=== PATIENT | female | born 1960 | race Caucasian/White ===

== ENCOUNTER 2016-03-14 07:58 | Inpatient (IN) | payer MEDICAID ==
[~2016-03-14] VITALS: Ht 157.5 cm; Wt 49.9 kg
[2016-03-14 08:06] VITALS: BP_SYST 11; BP_SYST 111; BP_DIAS 74; PULSE 64; RESP 16; TEMP 98.3; O2SAT 100
[2016-03-14] MEDS ORDERED: POTA20TA83 PO (08:53)
[2016-03-14] MEDS ORDERED: LACT10SO66 PO (08:53)
[2016-03-14] MEDS ORDERED: HYDR2TAB34 PO (08:53)
[2016-03-14] MEDS ORDERED: FURO-149 PO (08:53)
[2016-03-14] MEDS ORDERED: SPIR50TA26 PO (08:53)
[2016-03-14] MEDS ORDERED: ONDA4TAB5 PO (08:53)
[2016-03-14] MEDS ORDERED: CEL20 PO (08:53)
[2016-03-14] MEDS ORDERED: IPRA3AMP9 INH (08:53)
[2016-03-14] MEDS ORDERED: MORP15TA60 PO (08:53)
[2016-03-14] MEDS ORDERED: DIPH25CA83 PO (08:53)
[2016-03-14 10:00] LABS: BASOPHILS % (AUTO) 0.4 % (0.0-2.0); EOSINOPHILS # (AUTO) 0.2 K/uL (0.0-0.4); EOSINOPHILS % (AUTO) 4.2 % (0.0-4.0); HEMATOCRIT 25.3 % (36-48); HEMOGLOBIN 7.8 g/dL (12.0-16.0); LYMPHOCYTES # (AUTO) 1.5 K/uL (1.0-5.5); MEAN CORPUSCULAR HEMOGLOBIN 21 pg (27-31); MEAN CORPUSCULAR HGB CONC 31 % (32-36); MEAN CORPUSCULAR VOLUME 69 fL (79.0-98.0); MONOCYTES # (AUTO) 0.5 K/uL (0.0-1.0); MONOCYTES % (AUTO) 9.6 % (1.7-9.3); NEUTROPHILS # (AUTO) 3.5 K/uL (1.8-7.7); NEUTROPHILS % (AUTO) 58.8 % (40.0-70.0); PLATELET COUNT (AUTO) 135 K/uL (130-430); RED BLOOD CELL COUNT(AUTO) 3.67 MIL/uL (4.2-6.2); RED CELL DISTRIBUTION WIDTH 21.4 % (9.0-15.0); WHITE BLOOD COUNT (AUTO) 5.7 K/uL (4.8-10.8)
[2016-03-14 10:10] LABS: BILIRUBIN,URINE NEGATIVE (NEGATIVE); BLOOD, URINE NEGATIVE (NEGATIVE); CLARITY/URINE CLEAR (CLEAR); COLOR,URINE YELLOW (YELLOW); GLUCOSE,URINE NEGATIVE (NEGATIVE); KETONES,URINE NEGATIVE (NEGATIVE); LEUKOCYTE ESTERASE ,URINE NEGATIVE (NEGATIVE); NITRITE, URINE NEGATIVE (NEGATIVE); PROTEIN URINE NEGATIVE (NEGATIVE); UROBILINOGEN,URINE 0.2 (0.2-1.0)
[2016-03-14 10:10] LABS: CALCIUM 9.4 mg/dL (8.4-11.0); CREATININE 0.6 mg/dL (0.55-1.30); POTASSIUM 3.8 mmol/L (3.5-5.1)
[2016-03-14 10:11] LABS: INR 1.1 (0.8-1.2); PROTHROMBIN TIME 11.6 SECS (9.5-12.5)
[2016-03-14 10:15] LABS: TOTAL BILIRUBIN 0.5 mg/dL (0.0-1.0); TOTAL PROTEIN, SERUM 7.4 g/dL (6.4-8.3)
[2016-03-14] MEDS ORDERED: HYDROmorphone 1 MG INJ. 1 MG/ML AMPUL IVP ONE (11:00)
[2016-03-14] MEDS ORDERED: ONDANSETRON HCL 4 MG/2 ML VIAL IVP ONE (11:00)
[2016-03-14] MEDS ORDERED: LORazepam 2 MG/ML VIAL (FOR ER USE) IVP ONE (12:00)
[2016-03-14] MEDS ORDERED: METOCLOPRAMIDE HCL 10 MG/2 ML VIAL IVP PRN (12:15)
[2016-03-14] MEDS ORDERED: ACETAMINOPHEN 325 MG TABLET PO PRN (12:15)
[2016-03-14] MEDS: PIPERACILLIN/TAZO 3.375/DEX-IS 50 ML IV SCH ×3 (12:17→23:58)
[2016-03-14 13:00] VITALS: BP 115/49; PULSE 63; RESP 18; TEMP 98.1; O2SAT 96
[2016-03-14 16:00] VITALS: BP 97/56; PULSE 76; RESP 17; TEMP 98.1; O2SAT 97
[2016-03-14 16:12] LABS: IRON (SERUM) 22 mcg/dL (37-145); TOTAL IRON BIND. CAPACITY 475 ug/dL (250-450)
[2016-03-14] MEDS ORDERED: DIATR MEGLU/DIATRIZ SOD 30 ML SOLUTION PO ONE (16:46)
[2016-03-14] MEDS: D5NS 1,000 ML IV SCH ×2 (17:20→23:00)
[2016-03-14] MEDS: MORPHINE 2 MG/ML INJ. SYRINGE IVP PRN (18:04)
[2016-03-14 19:00] VITALS: BP 96/50; PULSE 53; RESP 16; TEMP 99; O2SAT 98
[2016-03-14] MEDS ORDERED: IOHEXOL 100 ML IV ONE (19:37)
[2016-03-14] MEDS: MORPHINE 4 MG/ML INJ. SYRINGE IVP PRN ×2 (19:59→23:53)
[2016-03-14 20:00] VITALS: BP 96/50; PULSE 53; RESP 18; TEMP 99; O2SAT 98
[2016-03-14] MEDS: NICOTINE 7 MG/24 HR PATCH.TD24 TD SCH (21:48)
[2016-03-15] MEDS: PIPERACILLIN/TAZO 3.375/DEX-IS 50 ML IV SCH ×6 (00:01→23:29)
[2016-03-15 00:46] VITALS: BP 117/72; PULSE 58; RESP 18; TEMP 98.6; O2SAT 99
[2016-03-15] MEDS: D5NS 1,000 ML IV SCH ×2 (02:49→22:21)
[2016-03-15] MEDS: MORPHINE 4 MG/ML INJ. SYRINGE IVP PRN ×4 (04:10→23:28)
[2016-03-15 04:19] VITALS: BP 111/63; PULSE 62; RESP 17; TEMP 98.4; O2SAT 95
[2016-03-15 08:00] VITALS: BP 103/68; PULSE 64; RESP 16; TEMP 98.2; O2SAT 96
[2016-03-15] MEDS: CITALOPRAM HYDROBROMIDE 20 MG TABLET PO SCH (08:54)
[2016-03-15] MEDS: NICOTINE 7 MG/24 HR PATCH.TD24 TD SCH (08:55)
[2016-03-15 12:30] VITALS: BP 118/81; PULSE 87; RESP 16; TEMP 97.9; O2SAT 97
[2016-03-15 16:00] VITALS: BP 107/54; PULSE 79; RESP 15; TEMP 98.1; O2SAT 97
[2016-03-15 16:29] VITALS: Ht 157.5 cm; Wt 49.9 kg
[2016-03-15] MEDS: MORPHINE 2 MG/ML INJ. SYRINGE IVP PRN (18:42)
[2016-03-15 20:00] VITALS: BP 113/71; PULSE 52; RESP 18; TEMP 98.5; O2SAT 98
[2016-03-15] MEDS: ONDANSETRON HCL 4 MG/2 ML VIAL IVP PRN (23:29)
[2016-03-16 01:43] VITALS: BP 136/74; PULSE 51; RESP 19; TEMP 98; O2SAT 99
[2016-03-16 04:12] VITALS: BP 140/76; PULSE 76; RESP 18; TEMP 98.9; O2SAT 98
[2016-03-16] MEDS: MORPHINE 4 MG/ML INJ. SYRINGE IVP PRN (05:30)
[2016-03-16] MEDS: ONDANSETRON HCL 4 MG/2 ML VIAL IVP PRN (05:30)
[2016-03-16] MEDS: PIPERACILLIN/TAZO 3.375/DEX-IS 50 ML IV SCH (05:30)
[2016-03-16 06:56] LABS: BASOPHILS # (AUTO) 0.1 K/uL (0.0-0.2); BASOPHILS % (AUTO) 1.3 % (0.0-2.0); EOSINOPHILS # (AUTO) 0.2 K/uL (0.0-0.4); EOSINOPHILS % (AUTO) 3.9 % (0.0-4.0); HEMATOCRIT 25.5 % (36-48); HEMOGLOBIN 7.9 g/dL (12.0-16.0); LYMPHOCYTES # (AUTO) 1.8 K/uL (1.0-5.5); LYMPHOCYTES % (AUTO) 30.8 % (20.5-51.5); MEAN CORPUSCULAR HEMOGLOBIN 22 pg (27-31); MEAN CORPUSCULAR HGB CONC 31 % (32-36); MEAN CORPUSCULAR VOLUME 70 fL (79.0-98.0); MONOCYTES # (AUTO) 0.4 K/uL (0.0-1.0); MONOCYTES % (AUTO) 6.9 % (1.7-9.3); NEUTROPHILS # (AUTO) 3.2 K/uL (1.8-7.7); NEUTROPHILS % (AUTO) 57.1 % (40.0-70.0); PLATELET COUNT (AUTO) 98 K/uL (130-430); RED BLOOD CELL COUNT(AUTO) 3.66 MIL/uL (4.2-6.2); RED CELL DISTRIBUTION WIDTH 21.8 % (9.0-15.0); WHITE BLOOD COUNT (AUTO) 5.8 K/uL (4.8-10.8)
[2016-03-16] MEDS: NICOTINE 7 MG/24 HR PATCH.TD24 TD SCH (08:16)
[2016-03-16] MEDS: CITALOPRAM HYDROBROMIDE 20 MG TABLET PO SCH (08:17)
[2016-03-16 09:49] VITALS: BP 103/57; PULSE 52; RESP 15; TEMP 97.7; O2SAT 98
== END 2016-03-16 10:15 | disposition home or self-care (01) | DRG 249 ==
LOC: SED 07:58 → SMU 11:47
PROVIDERS: ADMIT Internal Medicine Hospice and Palliative Medicine; ATTEND Internal Medicine Hospice and Palliative Medicine
DX: K52.9 Noninfective gastroenteritis and colitis, unspecified (principal); D68.59 Other primary thrombophilia; K70.30 Alcoholic cirrhosis of liver without ascites; E44.1 Mild protein-calorie malnutrition; N13.30 Unspecified hydronephrosis; G89.29 Other chronic pain; F10.10 Alcohol abuse, uncomplicated; K43.9 Ventral hernia without obstruction or gangrene; D64.9 Anemia, unspecified; Z79.899 Other long term (current) drug therapy
CPT/HCPCS: 36415; 71010; 80053; 81003; 82105; 82140-TC; 82607; 83540-TC; 83550-TC; 83605; 83690-TC; 85025; 85610-TC; 87040-TC; 93005; 96365; 96375; 99285; J1170; J2060; J2270; J2405; J2543; J7042; Q9964; Q9967

== ENCOUNTER 2017-07-28 06:41 | Inpatient (IN) | payer SELFPAY ==
[2017-07-28] VITALS (21 sets, daily range): BP systolic 87–140
[~2017-07-28] VITALS: Ht 157.5 cm; Wt 62.6 kg
[~2017-07-28 06:41] MED LIST: CEL20 PO; DIPH25CA83 PO; FURO-149 PO; HYDR2TAB34 PO; IPRA3AMP9 INH; LACT10SO66 PO; MORP15TA60 PO; ONDA4TAB5 PO; POTA20TA83 PO; SPIR50TA26 PO
[2017-07-28] MEDS ORDERED: NACL 0.9% 1,000 ML IV ONE ×4 (06:51→11:45)
[2017-07-28] MEDS ORDERED: NALOXONE HCL 2 MG/2 ML SYR IVP ONE ×2 (07:00→07:15)
[2017-07-28] MEDS ORDERED: ESCI10TA PO (07:09)
[2017-07-28] MEDS ORDERED: DICY10CA59 PO (07:09)
[2017-07-28] MEDS ORDERED: PROP10TA10 PO (07:09)
[2017-07-28] MEDS ORDERED: ALPR1TAB2 PO ×2 (07:09)
[2017-07-28] MEDS ORDERED: DOCU-144 PO (07:09)
[2017-07-28] MEDS ORDERED: PANT20TA2 PO (07:09)
[2017-07-28] MEDS ORDERED: TYC3 PO (07:09)
[2017-07-28] MEDS ORDERED: HYDR4TAB26 PO (07:09)
[2017-07-28 07:28] LABS: HEMATOCRIT 45.6 % (36-48); HEMOGLOBIN 15.2 g/dL (12.0-16.0); MEAN CORPUSCULAR HEMOGLOBIN 34 pg (27-31); MEAN CORPUSCULAR HGB CONC 33 % (32-36); MEAN CORPUSCULAR VOLUME 101 fL (79.0-98.0); PLATELET COUNT (AUTO) 159 K/uL (130-430); RED BLOOD CELL COUNT(AUTO) 4.51 MIL/uL (4.2-6.2); RED CELL DISTRIBUTION WIDTH 14.2 % (9.0-15.0)
[2017-07-28 07:31] LABS: BILIRUBIN,URINE NEGATIVE (NEGATIVE); BLOOD, URINE 1+ (NEGATIVE); CLARITY/URINE CLEAR (CLEAR); COLOR,URINE YELLOW (YELLOW); GLUCOSE,URINE NEGATIVE (NEGATIVE); KETONES,URINE NEGATIVE (NEGATIVE); LEUKOCYTE ESTERASE ,URINE 1+ (NEGATIVE); NITRITE, URINE NEGATIVE (NEGATIVE); PH,URINE 6.5 (5.0-8.0); PROTEIN URINE NEGATIVE (NEGATIVE); UROBILINOGEN,URINE 0.2 (0.2-1.0)
[2017-07-28 07:48] LABS: ANION GAP 11 (5-15); CALCIUM 8.1 mg/dL (8.4-11.0); CHLORIDE 106 mmol/L (98-107); CREATININE 1.84 mg/dL (0.55-1.30); GLUCOSE 129 mg/dL (70-99); POTASSIUM 5.7 mmol/L (3.5-5.1); SODIUM SERUM 142 mmol/L (136-145); UREA NITROGEN, BLOOD 10 mg/dL (8-21)
[2017-07-28 07:52] LABS: INR 1.1 (0.8-1.2); PROTHROMBIN TIME 11.3 SECS (9.5-12.5)
[2017-07-28 07:54] LABS: ALANINE AMINOTRANSFERASE 25 U/L (12-78); ALBUMIN 3.4 g/dL (3.4-4.8); ASPARTATE AMINOTRANSFERASE 37 U/L (10-37); TOTAL BILIRUBIN 0.2 mg/dL (0.0-1.0)
[2017-07-28 07:56] LABS: ALCOHOL, BLOOD < 3 mg/dL (<10); GFR AFRICAN AMERICAN 36 mL/min (>90)
[2017-07-28 07:57] LABS: ACETAMINOPHEN < 1 ug/mL (1-30)
[2017-07-28 08:01] LABS: BACTERIA,URINE FEW /HPF (None Seen)
[2017-07-28 08:02] LABS: MUCUS,URINE None Seen /LPF (None Seen)
[2017-07-28 08:06] LABS: WHITE BLOOD COUNT (AUTO) 17.1 K/uL (4.8-10.8)
[2017-07-28 08:13] LABS: BARBITURATE, URINE NEGATIVE (NEG <=200); METHAMPHETAMINES SCREEN,URINE NEGATIVE (NEG <=500); URINE AMPHETAMINE NEGATIVE (NEG <=500); URINE METHADONE NEGATIVE (NEG <=200)
[2017-07-28 08:14] LABS: BENZODIAZEPINE, URINE POSITIVE (NEG <=150); CANNABINOID, URINE NEGATIVE (NEG <=50); COCAINE, URINE NEGATIVE (NEG <=150); OPIATE, URINE POSITIVE (NEG <=100); PHENCYCLIDINE SCREEN,URINE NEGATIVE (NEG <=25)
[2017-07-28 08:15] LABS: UR TRICYCLIC ANTIDEPRESSANTS NEGATIVE (NEG <=300); URINE OXYCODONE SCREEN NEGATIVE (NEG <=100); URINE PROPOXYPHENE SCREEN NEGATIVE (NEG <=300)
[2017-07-28] MEDS ORDERED: NALOXONE HCL 2 MG/2 ML SYR (NARCAN) IVP ONE (08:15)
[2017-07-28] MEDS ORDERED: FLUMAZENIL 0.1 MG/ML IVP ONE ×2 (08:15→08:20)
[2017-07-28 08:34] LABS: BAND % (MANUAL) 7 % (0-6); BASOPHILS % (MANUAL) 0 % (0-2); EOSINOPHILS % (MANUAL) 1 % (0-7); LYMPHOCYTES % (MANUAL) 9 % (20-46); MONOCYTES % (MANUAL) 5 % (0-11)
[2017-07-28] MEDS ORDERED: NALOXONE HCL 2 MG/2 ML SYR ONE (08:50)
[2017-07-28] MEDS ORDERED: PROPOFOL DRIP 100 ML IV ONE (10:00)
[2017-07-28] MEDS ORDERED: NOREPINEPHRINE 4 MG/4 ML VIAL IV ONE ×2 (10:25→16:16)
[2017-07-28] MEDS ORDERED: NOREPINEPHRINE BITARTRATE 4 MG in D5W 246 ML IV PRN (10:30)
[2017-07-28] MEDS ORDERED: ALBUTEROL SULFATE 0.083% 2.5 MG/3 ML VIAL.NEB INH SCH (11:15)
[2017-07-28] MEDS ORDERED: ALBUTEROL SULFATE 0.083% 2.5 MG/3 ML VIAL.NEB INH PRN (11:15)
[2017-07-28] MEDS ORDERED: IPRATROPIUM BROM 0.5 MG/2.5 ML VIAL.NEB (ATROVENT) INH PRN (11:15)
[2017-07-28] MEDS ORDERED: IPRATROPIUM BROM 0.5 MG/2.5 ML VIAL.NEB (ATROVENT) INH SCH (11:15)
[2017-07-28] MEDS ORDERED: MORPHINE 2 MG/ML INJ. SYRINGE IVP PRN (12:45)
[2017-07-28] MEDS: D5NS 1,000 ML IV SCH ×2 (13:49→23:22)
[2017-07-28] MEDS: PIPERACILLIN/TAZO 3.375/DEX-IS 50 ML IV SCH ×3 (13:56→23:23)
[2017-07-28] MEDS: IPRATROPIUM/ALBUTEROL SULFATE 3 ML AMPUL.NEB INH SCH ×2 (13:57→19:55)
[2017-07-28] MEDS: HYDROCORTISONE SOD SUCC 100 MG/2 ML VIAL IVP SCH ×2 (13:59→21:54)
[2017-07-28] MEDS: PANTOPRAZOLE SODIUM 40 MG/VIAL (PROTONIX) IVP SCH (13:59)
[2017-07-28] MEDS ORDERED: SODIUM BICARBONATE 8.4% JECT 50 MEQ/50 ML SYRINGE IVP ONE (14:30)
[2017-07-28] MEDS ORDERED: SODIUM BICARBONATE 8.4% JECT 50 MEQ/50 ML SYRINGE ONE (14:36)
[2017-07-28] MEDS: NOREPINEPHRINE BITARTRATE 4 MG in NS 246 ML IV PRN (23:26)
[2017-07-29] VITALS (33 sets, daily range): BP systolic 91–140
[2017-07-29] MEDS: IPRATROPIUM/ALBUTEROL SULFATE 3 ML AMPUL.NEB INH SCH ×4 (00:47→18:46)
[2017-07-29] MEDS: HYDROCORTISONE SOD SUCC 100 MG/2 ML VIAL IVP SCH ×3 (05:07→21:05)
[2017-07-29] MEDS: PIPERACILLIN/TAZO 3.375/DEX-IS 50 ML IV SCH ×3 (05:07→17:24)
[2017-07-29] MEDS ORDERED: PROPOFOL DRIP 100 ML IV ONE (05:22)
[2017-07-29] MEDS: PROPOFOL DRIP 100 ML IV PRN ×3 (05:25→21:01)
[2017-07-29 06:25] LABS: BASOPHILS # (AUTO) 0.1 K/uL (0.0-0.2); BASOPHILS % (AUTO) 0.4 % (0.0-2.0); CALCIUM 7.6 mg/dL (8.4-11.0); CREATININE 1.28 mg/dL (0.55-1.30); EOSINOPHILS % (AUTO) 0.1 % (0.0-4.0); HEMATOCRIT 42.4 % (36-48); LYMPHOCYTES # (AUTO) 0.7 K/uL (1.0-5.5); LYMPHOCYTES % (AUTO) 5.4 % (20.5-51.5); MEAN CORPUSCULAR HEMOGLOBIN 33 pg (27-31); MEAN CORPUSCULAR HGB CONC 33 % (32-36); MEAN CORPUSCULAR VOLUME 101 fL (79.0-98.0); MONOCYTES # (AUTO) 0.8 K/uL (0.0-1.0); MONOCYTES % (AUTO) 5.8 % (1.7-9.3); NEUTROPHILS # (AUTO) 11.5 K/uL (1.8-7.7); NEUTROPHILS % (AUTO) 88.3 % (40.0-70.0); PLATELET COUNT (AUTO) 113 K/uL (130-430); POTASSIUM 3.4 mmol/L (3.5-5.1); RED CELL DISTRIBUTION WIDTH 14.1 % (9.0-15.0); WHITE BLOOD COUNT (AUTO) 13.1 K/uL (4.8-10.8)
[2017-07-29 06:35] LABS: ALBUMIN 2.8 g/dL (3.4-4.8); TOTAL BILIRUBIN 0.4 mg/dL (0.0-1.0)
[2017-07-29] MEDS: PANTOPRAZOLE SODIUM 40 MG/VIAL (PROTONIX) IVP SCH (08:14)
[2017-07-29] MEDS: D5NS 1,000 ML IV SCH ×2 (08:15→17:24)
[2017-07-29] MEDS ORDERED: NS 500 ML IV ONE (08:30)
[2017-07-29] MEDS ORDERED: POTASSIUM CHLORIDE 40 MEQ in NS 250 ML IV ONE (08:30)
[2017-07-29] MEDS: LORazepam 2 MG/ML VIAL IVP PRN (09:00)
[2017-07-29] MEDS: NOREPINEPHRINE BITARTRATE 4 MG in NS 246 ML IV PRN (09:28)
[2017-07-30] VITALS (36 sets, daily range): BP systolic 108–155
[2017-07-30] MEDS: PIPERACILLIN/TAZO 3.375/DEX-IS 50 ML IV SCH ×5 (00:50→23:37)
[2017-07-30] MEDS: IPRATROPIUM/ALBUTEROL SULFATE 3 ML AMPUL.NEB INH SCH ×4 (01:00→20:09)
[2017-07-30 06:10] LABS: BASOPHILS # (AUTO) 0.1 K/uL (0.0-0.2); BASOPHILS % (AUTO) 0.8 % (0.0-2.0); HEMATOCRIT 39.9 % (36-48); HEMOGLOBIN 13.3 g/dL (12.0-16.0); LYMPHOCYTES # (AUTO) 1.1 K/uL (1.0-5.5); LYMPHOCYTES % (AUTO) 10.2 % (20.5-51.5); MEAN CORPUSCULAR HEMOGLOBIN 34 pg (27-31); MEAN CORPUSCULAR HGB CONC 33 % (32-36); MEAN CORPUSCULAR VOLUME 101 fL (79.0-98.0); MONOCYTES # (AUTO) 0.6 K/uL (0.0-1.0); MONOCYTES % (AUTO) 5.3 % (1.7-9.3); NEUTROPHILS # (AUTO) 8.8 K/uL (1.8-7.7); NEUTROPHILS % (AUTO) 83.7 % (40.0-70.0); PLATELET COUNT (AUTO) 110 K/uL (130-430); RED BLOOD CELL COUNT(AUTO) 3.96 MIL/uL (4.2-6.2); RED CELL DISTRIBUTION WIDTH 14.4 % (9.0-15.0); WHITE BLOOD COUNT (AUTO) 10.6 K/uL (4.8-10.8)
[2017-07-30] MEDS: PROPOFOL DRIP 100 ML IV PRN ×4 (06:18→23:40)
[2017-07-30] MEDS: D5NS 1,000 ML IV SCH (06:21)
[2017-07-30] MEDS: HYDROCORTISONE SOD SUCC 100 MG/2 ML VIAL IVP SCH ×2 (06:21→22:31)
[2017-07-30 06:40] LABS: CALCIUM 8.2 mg/dL (8.4-11.0); POTASSIUM 3.9 mmol/L (3.5-5.1)
[2017-07-30 06:41] LABS: CREATININE 0.7 mg/dL (0.55-1.30)
[2017-07-30 07:06] LABS: ALBUMIN 2.7 g/dL (3.4-4.8); TOTAL BILIRUBIN 0.4 mg/dL (0.0-1.0)
[2017-07-30 07:13] LABS: THYROID STIMULATING HORMONE 0.35 uIu/mL (0.36-3.74)
[2017-07-30] MEDS: PANTOPRAZOLE SODIUM 40 MG/VIAL (PROTONIX) IVP SCH (09:15)
[2017-07-30] MEDS: LORazepam 2 MG/ML VIAL IVP PRN ×4 (09:15→18:00)
[2017-07-30] MEDS: 0.45% NACL 1,000 ML IV SCH (15:25)
[2017-07-30] MEDS: MORPHINE 4 MG/ML INJ. SYRINGE IVP PRN (18:00)
[2017-07-31] VITALS (35 sets, daily range): BP systolic 108–154
[2017-07-31] MEDS: IPRATROPIUM/ALBUTEROL SULFATE 3 ML AMPUL.NEB INH SCH ×4 (01:53→19:24)
[2017-07-31] MEDS: HYDROCORTISONE SOD SUCC 100 MG/2 ML VIAL IVP SCH ×3 (05:21→21:49)
[2017-07-31] MEDS: PIPERACILLIN/TAZO 3.375/DEX-IS 50 ML IV SCH ×4 (05:21→23:10)
[2017-07-31] MEDS: 0.45% NACL 1,000 ML IV SCH ×2 (05:22→23:05)
[2017-07-31 06:08] LABS: BASOPHILS # (AUTO) 0.3 K/uL (0.0-0.2); BASOPHILS % (AUTO) 3.2 % (0.0-2.0); EOSINOPHILS % (AUTO) 0.3 % (0.0-4.0); HEMOGLOBIN 13.1 g/dL (12.0-16.0); LYMPHOCYTES # (AUTO) 1.5 K/uL (1.0-5.5); MEAN CORPUSCULAR HEMOGLOBIN 34 pg (27-31); MEAN CORPUSCULAR HGB CONC 34 % (32-36); MEAN CORPUSCULAR VOLUME 101 fL (79.0-98.0); MONOCYTES # (AUTO) 0.4 K/uL (0.0-1.0); MONOCYTES % (AUTO) 4.4 % (1.7-9.3); NEUTROPHILS # (AUTO) 6.4 K/uL (1.8-7.7); NEUTROPHILS % (AUTO) 75.1 % (40.0-70.0); PLATELET COUNT (AUTO) 98 K/uL (130-430); RED BLOOD CELL COUNT(AUTO) 3.86 MIL/uL (4.2-6.2); RED CELL DISTRIBUTION WIDTH 14.3 % (9.0-15.0); WHITE BLOOD COUNT (AUTO) 8.6 K/uL (4.8-10.8)
[2017-07-31 06:17] LABS: ALBUMIN 2.5 g/dL (3.4-4.8); CALCIUM 8.3 mg/dL (8.4-11.0); CREATININE 0.75 mg/dL (0.55-1.30); POTASSIUM 3.7 mmol/L (3.5-5.1); TOTAL BILIRUBIN 0.6 mg/dL (0.0-1.0)
[2017-07-31] MEDS: PANTOPRAZOLE SODIUM 40 MG/VIAL (PROTONIX) IVP SCH (08:09)
[2017-07-31] MEDS: LORazepam 2 MG/ML VIAL IVP PRN ×3 (08:10→17:27)
[2017-07-31] MEDS: PROPOFOL DRIP 100 ML IV PRN ×3 (11:48→23:06)
[2017-07-31] MEDS ORDERED: FUROSEMIDE 20 MG/2 ML VIAL IVP ONE (15:15)
[2017-08-01] VITALS (32 sets, daily range): BP systolic 118–165
[2017-08-01] MEDS: IPRATROPIUM/ALBUTEROL SULFATE 3 ML AMPUL.NEB INH SCH ×4 (02:10→19:51)
[2017-08-01] MEDS: PROPOFOL DRIP 100 ML IV PRN ×4 (04:52→21:47)
[2017-08-01 05:32] LABS: EOSINOPHILS # (AUTO) 0.1 K/uL (0.0-0.4); HEMATOCRIT 41.4 % (36-48); HEMOGLOBIN 13.7 g/dL (12.0-16.0); LYMPHOCYTES # (AUTO) 1.4 K/uL (1.0-5.5); MEAN CORPUSCULAR HEMOGLOBIN 33 pg (27-31); MEAN CORPUSCULAR HGB CONC 33 % (32-36); MEAN CORPUSCULAR VOLUME 101 fL (79.0-98.0); PLATELET COUNT (AUTO) 114 K/uL (130-430); RED BLOOD CELL COUNT(AUTO) 4.11 MIL/uL (4.2-6.2); RED CELL DISTRIBUTION WIDTH 13.9 % (9.0-15.0); WHITE BLOOD COUNT (AUTO) 6.2 K/uL (4.8-10.8)
[2017-08-01] MEDS: PIPERACILLIN/TAZO 3.375/DEX-IS 50 ML IV SCH ×4 (05:55→23:15)
[2017-08-01 06:12] LABS: ALBUMIN 2.6 g/dL (3.4-4.8); CALCIUM 8.2 mg/dL (8.4-11.0); CREATININE 0.8 mg/dL (0.55-1.30); POTASSIUM 3.1 mmol/L (3.5-5.1); TOTAL BILIRUBIN 0.7 mg/dL (0.0-1.0)
[2017-08-01 09:07] LABS: EOSINOPHILS % (AUTO) 1.3 % (0.0-4.0); LYMPHOCYTES % (AUTO) 22.5 % (20.5-51.5); MONOCYTES % (AUTO) 8.6 % (1.7-9.3)
[2017-08-01 09:08] LABS: MONOCYTES # (AUTO) 0.5 K/uL (0.0-1.0); NEUTROPHILS # (AUTO) 4.2 K/uL (1.8-7.7)
[2017-08-01 09:09] LABS: NEUTROPHILS % (AUTO) 67.6 % (40.0-70.0)
[2017-08-01] MEDS ORDERED: POTASSIUM CHLORIDE 20 MEQ TAB.PRT.SR PO ONE (09:15)
[2017-08-01] MEDS: HYDROCORTISONE SOD SUCC 100 MG/2 ML VIAL IVP SCH ×2 (09:43→20:36)
[2017-08-01] MEDS: PANTOPRAZOLE SODIUM 40 MG/VIAL (PROTONIX) IVP SCH (09:45)
[2017-08-01 10:23] LABS: PROTHROMBIN TIME 10.6 SECS (9.5-12.5)
[2017-08-01] MEDS: 0.45% NACL 1,000 ML IV SCH (20:36)
[2017-08-02] VITALS (30 sets, daily range): BP systolic 110–151
[2017-08-02] MEDS: IPRATROPIUM/ALBUTEROL SULFATE 3 ML AMPUL.NEB INH SCH ×4 (01:26→19:37)
[2017-08-02] MEDS: PROPOFOL DRIP 100 ML IV PRN ×2 (02:48→06:18)
[2017-08-02] MEDS: PIPERACILLIN/TAZO 3.375/DEX-IS 50 ML IV SCH ×4 (05:23→23:13)
[2017-08-02 05:38] LABS: BASOPHILS % (AUTO) 0.2 % (0.0-2.0); EOSINOPHILS # (AUTO) 0.2 K/uL (0.0-0.4); EOSINOPHILS % (AUTO) 1.8 % (0.0-4.0); HEMATOCRIT 39.3 % (36-48); HEMOGLOBIN 13.3 g/dL (12.0-16.0); LYMPHOCYTES # (AUTO) 1.6 K/uL (1.0-5.5); LYMPHOCYTES % (AUTO) 18.3 % (20.5-51.5); MEAN CORPUSCULAR HEMOGLOBIN 34 pg (27-31); MEAN CORPUSCULAR HGB CONC 34 % (32-36); MEAN CORPUSCULAR VOLUME 99 fL (79.0-98.0); MONOCYTES # (AUTO) 0.7 K/uL (0.0-1.0); MONOCYTES % (AUTO) 7.8 % (1.7-9.3); NEUTROPHILS # (AUTO) 6.4 K/uL (1.8-7.7); NEUTROPHILS % (AUTO) 71.9 % (40.0-70.0); PLATELET COUNT (AUTO) 103 K/uL (130-430); RED BLOOD CELL COUNT(AUTO) 3.96 MIL/uL (4.2-6.2); WHITE BLOOD COUNT (AUTO) 8.9 K/uL (4.8-10.8)
[2017-08-02 05:59] LABS: POTASSIUM 3.1 mmol/L (3.5-5.1)
[2017-08-02 06:01] LABS: CREATININE 0.66 mg/dL (0.55-1.30)
[2017-08-02] MEDS ORDERED: POTASSIUM CHLORIDE 20 MEQ/PKT PACKET PO ONE (08:15)
[2017-08-02] MEDS: PANTOPRAZOLE SODIUM 40 MG/VIAL (PROTONIX) IVP SCH (09:12)
[2017-08-02] MEDS: HYDROCORTISONE SOD SUCC 100 MG/2 ML VIAL IVP SCH ×2 (09:12→20:08)
[2017-08-02] MEDS ORDERED: POTASSIUM CHLORIDE 40 MEQ in NS 250 ML IV SCH (09:41)
[2017-08-02] MEDS ORDERED: ONDANSETRON HCL 4 MG/2 ML VIAL IVP PRN (09:45)
[2017-08-02] MEDS ORDERED: FUROSEMIDE 20 MG/2 ML VIAL IVP ONE (10:15)
[2017-08-02] MEDS: LORazepam 2 MG/ML VIAL IVP PRN ×3 (16:28→23:14)
[2017-08-02] MEDS: 0.45% NACL 1,000 ML IV SCH (17:22)
[2017-08-03] VITALS (25 sets, daily range): BP systolic 99–173
[2017-08-03] MEDS: IPRATROPIUM/ALBUTEROL SULFATE 3 ML AMPUL.NEB INH SCH ×4 (01:00→19:39)
[2017-08-03] MEDS: PIPERACILLIN/TAZO 3.375/DEX-IS 50 ML IV SCH ×4 (05:16→23:26)
[2017-08-03 06:26] LABS: CALCIUM 8.4 mg/dL (8.4-11.0); CREATININE 0.6 mg/dL (0.55-1.30)
[2017-08-03 06:44] LABS: BASOPHILS # (AUTO) 0.1 K/uL (0.0-0.2); BASOPHILS % (AUTO) 0.9 % (0.0-2.0); EOSINOPHILS # (AUTO) 0.2 K/uL (0.0-0.4); HEMATOCRIT 42.2 % (36-48); HEMOGLOBIN 13.9 g/dL (12.0-16.0); LYMPHOCYTES # (AUTO) 1.7 K/uL (1.0-5.5); LYMPHOCYTES % (AUTO) 19.4 % (20.5-51.5); MEAN CORPUSCULAR HEMOGLOBIN 33 pg (27-31); MEAN CORPUSCULAR HGB CONC 33 % (32-36); MEAN CORPUSCULAR VOLUME 100 fL (79.0-98.0); MONOCYTES # (AUTO) 0.7 K/uL (0.0-1.0); MONOCYTES % (AUTO) 7.3 % (1.7-9.3); NEUTROPHILS # (AUTO) 6.2 K/uL (1.8-7.7); NEUTROPHILS % (AUTO) 70.4 % (40.0-70.0); PLATELET COUNT (AUTO) 102 K/uL (130-430); RED CELL DISTRIBUTION WIDTH 13.3 % (9.0-15.0); WHITE BLOOD COUNT (AUTO) 8.9 K/uL (4.8-10.8)
[2017-08-03 06:48] LABS: POTASSIUM 2.9 mmol/L (3.5-5.1)
[2017-08-03] MEDS ORDERED: POTASSIUM CHLORIDE 40 MEQ in NS 250 ML IV ONE (08:00)
[2017-08-03] MEDS: PANTOPRAZOLE SODIUM 40 MG TAB PO SCH (08:36)
[2017-08-03] MEDS: HYDROCORTISONE SOD SUCC 100 MG/2 ML VIAL IVP SCH ×2 (08:37→21:27)
[2017-08-03] MEDS: LORazepam 2 MG/ML VIAL IVP PRN ×4 (08:51→17:50)
[2017-08-03] MEDS: NICOTINE 21 MG/24 HR PATCH.TD24 TD SCH (09:53)
[2017-08-03] MEDS: 0.45% NACL 1,000 ML IV SCH (10:09)
[2017-08-04] VITALS (17 sets, daily range): BP systolic 96–180
[2017-08-04] MEDS: IPRATROPIUM/ALBUTEROL SULFATE 3 ML AMPUL.NEB INH SCH ×4 (01:00→20:15)
[2017-08-04] MEDS: LORazepam 2 MG/ML VIAL IVP PRN ×5 (04:06→23:19)
[2017-08-04] MEDS: PIPERACILLIN/TAZO 3.375/DEX-IS 50 ML IV SCH ×4 (06:10→23:01)
[2017-08-04 06:20] LABS: BASOPHILS # (AUTO) 0.1 K/uL (0.0-0.2); EOSINOPHILS # (AUTO) 0.2 K/uL (0.0-0.4); EOSINOPHILS % (AUTO) 3.2 % (0.0-4.0); HEMATOCRIT 40.9 % (36-48); HEMOGLOBIN 13.8 g/dL (12.0-16.0); LYMPHOCYTES # (AUTO) 1.7 K/uL (1.0-5.5); LYMPHOCYTES % (AUTO) 24.3 % (20.5-51.5); MEAN CORPUSCULAR HEMOGLOBIN 34 pg (27-31); MEAN CORPUSCULAR HGB CONC 34 % (32-36); MEAN CORPUSCULAR VOLUME 100 fL (79.0-98.0); MONOCYTES # (AUTO) 0.5 K/uL (0.0-1.0); MONOCYTES % (AUTO) 7.3 % (1.7-9.3); NEUTROPHILS # (AUTO) 4.6 K/uL (1.8-7.7); NEUTROPHILS % (AUTO) 64.2 % (40.0-70.0); PLATELET COUNT (AUTO) 107 K/uL (130-430); RED BLOOD CELL COUNT(AUTO) 4.11 MIL/uL (4.2-6.2); RED CELL DISTRIBUTION WIDTH 13.1 % (9.0-15.0); WHITE BLOOD COUNT (AUTO) 7.1 K/uL (4.8-10.8)
[2017-08-04 06:35] LABS: ALBUMIN 2.6 g/dL (3.4-4.8); CALCIUM 8.4 mg/dL (8.4-11.0); CREATININE 0.68 mg/dL (0.55-1.30); TOTAL BILIRUBIN 0.8 mg/dL (0.0-1.0)
[2017-08-04] MEDS: 0.45% NACL 1,000 ML IV SCH (08:42)
[2017-08-04] MEDS: PANTOPRAZOLE SODIUM 40 MG TAB PO SCH (08:42)
[2017-08-04] MEDS: HYDROCORTISONE SOD SUCC 100 MG/2 ML VIAL IVP SCH ×2 (08:42→21:26)
[2017-08-04] MEDS: NICOTINE 21 MG/24 HR PATCH.TD24 TD SCH (08:43)
[2017-08-04] MEDS ORDERED: POTASSIUM CHLORIDE 20 MEQ TAB.PRT.SR PO ONE (09:15)
[2017-08-04] MEDS: POTASSIUM CHLORIDE 20 MEQ TAB.PRT.SR PO SCH (21:26)
[2017-08-05] MEDS: IPRATROPIUM/ALBUTEROL SULFATE 3 ML AMPUL.NEB INH SCH ×3 (01:00→13:35)
[2017-08-05] MEDS: PIPERACILLIN/TAZO 3.375/DEX-IS 50 ML IV SCH ×2 (05:10→11:07)
[2017-08-05] MEDS: MORPHINE 4 MG/ML INJ. SYRINGE IVP PRN (05:11)
[2017-08-05 08:00] VITALS: BP_SYST 106
[2017-08-05] MEDS: POTASSIUM CHLORIDE 20 MEQ TAB.PRT.SR PO SCH (09:12)
[2017-08-05] MEDS: HYDROCORTISONE SOD SUCC 100 MG/2 ML VIAL IVP SCH (09:12)
[2017-08-05] MEDS: PANTOPRAZOLE SODIUM 40 MG TAB PO SCH (09:12)
[2017-08-05] MEDS: NICOTINE 21 MG/24 HR PATCH.TD24 TD SCH (09:13)
[2017-08-05] MEDS: LORazepam 2 MG/ML VIAL IVP PRN ×2 (09:22→15:44)
[2017-08-05 11:15] VITALS: BP_SYST 119
[2017-08-05 15:22] VITALS: BP_SYST 110
[2017-08-05] MEDS ORDERED: METH4TAB3 PO (17:00)
[2017-08-05] MEDS ORDERED: LEVO500T20 PO (17:00)
[2017-08-05] MEDS ORDERED: ALBMDI INH (17:01)
== END 2017-08-05 17:15 | disposition home or self-care (01) | DRG 870 ==
LOC: SED 06:41 → SIC 09:55 → STU 08-04 13:52
PROVIDERS: ADMIT Internal Medicine Hospice and Palliative Medicine; ATTEND Internal Medicine Hospice and Palliative Medicine
PROC: 5A1955Z Respiratory Ventilation, Greater than 96 Consecutive Hours (ICD-10-PCS; principal; 2017-07-28)
PROC: 0BH17EZ Insertion of Endotracheal Airway into Trachea, Via Natural or Artificial Opening (ICD-10-PCS; 2017-07-28)
PROC: 02HV33Z Insertion of Infusion Device into Superior Vena Cava, Percutaneous Approach (ICD-10-PCS; 2017-08-01)
PROC: B548ZZA Ultrasonography of Superior Vena Cava, Guidance (ICD-10-PCS; 2017-08-01)
DX: A41.9 Sepsis, unspecified organism (principal); J69.0 Pneumonitis due to inhalation of food and vomit; J96.01 Acute respiratory failure with hypoxia; I21.A1 Myocardial infarction type 2; G93.41 Metabolic encephalopathy; R45.851 Suicidal ideations; N17.9 Acute kidney failure, unspecified; E87.2 Acidosis; J44.1 Chronic obstructive pulmonary disease with (acute) exacerbation; R57.9 Shock, unspecified; F32.2 Major depressive disorder, single episode, severe without psychotic features; T40.2X2A Poisoning by other opioids, intentional self-harm, initial encounter; D69.6 Thrombocytopenia, unspecified; T42.4X2A Poisoning by benzodiazepines, intentional self-harm, initial encounter; F10.10 Alcohol abuse, uncomplicated; F17.210 Nicotine dependence, cigarettes, uncomplicated; G89.4 Chronic pain syndrome; I27.81 Cor pulmonale (chronic); K72.90 Hepatic failure, unspecified without coma; F41.9 Anxiety disorder, unspecified; K70.30 Alcoholic cirrhosis of liver without ascites; Z90.710 Acquired absence of both cervix and uterus; Z79.899 Other long term (current) drug therapy; Y92.89 Other specified places as the place of occurrence of the external cause
CPT/HCPCS: 36415; 36600; 71045; 80048; 80053; 80061; 80307; 81000-TC; 82140-TC; 82803-TC; 83605; 83880; 84443-TC; 84484; 85007; 85025; 85027; 85379; 85610-TC; 85730-TC; 87040-TC; 87070-TC; 87081; 87086; 87205-TC; 93005; 93306; 93970; 94002; 94003; 94640; 94760; 96374; 96375; 96376; 99291; C1751; C9113; G0480; G0481; G0482; J1720; J1940; J2060; J2270; J2310; J2543; J2704; J3480; J3490; J7042; J7050; J7613; J7620

== ENCOUNTER 2020-03-25 11:41 | Emergency (ER) | payer MEDICAID ==
[~2020-03-25] VITALS: Ht 157.5 cm; Wt 74.4 kg
[~2020-03-25 11:41] MED LIST changes: +ALBMDI INH; +ALPR1TAB2 PO; +DICY10CA59 PO; +DOCU-144 PO; +ESCI10TA PO; -HYDR2TAB34 PO; +HYDR4TAB26 PO; +LEVO500T20 PO; +METH4TAB3 PO; +PANT20TA2 PO; +PROP10TA10 PO; -SPIR50TA26 PO; +SPIR50TA5 PO; +TYC3 PO
[2020-03-25 11:45] VITALS: BP_SYST 86
[2020-03-25 13:00] LABS: BASOPHILS # (AUTO) 0.1 K/uL (0.0-0.2); BASOPHILS % (AUTO) 2.9 % (0.0-2.0); EOSINOPHILS # (AUTO) 0.1 K/uL (0.0-0.4); EOSINOPHILS % (AUTO) 2.7 % (0.0-4.0); HEMATOCRIT 34.2 % (36-48); HEMOGLOBIN 11.4 g/dL (12.0-16.0); LYMPHOCYTES # (AUTO) 1.7 K/uL (1.0-5.5); LYMPHOCYTES % (AUTO) 32.3 % (20.5-51.5); MEAN CORPUSCULAR HEMOGLOBIN 35 pg (27-31); MEAN CORPUSCULAR HGB CONC 33 % (32-36); MEAN CORPUSCULAR VOLUME 105 fL (79.0-98.0); MONOCYTES # (AUTO) 0.4 K/uL (0.0-1.0); MONOCYTES % (AUTO) 7.2 % (1.7-9.3); NEUTROPHILS # (AUTO) 2.8 K/uL (1.8-7.7); NEUTROPHILS % (AUTO) 54.9 % (40.0-70.0); PLATELET COUNT (AUTO) 75 K/uL (130-430); RED BLOOD CELL COUNT(AUTO) 3.25 MIL/uL (4.2-6.2); RED CELL DISTRIBUTION WIDTH 15.2 % (9.0-15.0); WHITE BLOOD COUNT (AUTO) 5.2 K/uL (4.8-10.8)
[2020-03-25 13:15] LABS: CALCIUM 8.9 mg/dL (8.4-11.0); CREATININE 0.98 mg/dL (0.55-1.30); POTASSIUM 4.2 mmol/L (3.5-5.1)
[2020-03-25 13:20] LABS: ALBUMIN 2.7 g/dL (3.4-4.8); TOTAL BILIRUBIN 1.4 mg/dL (0.0-1.0)
[2020-03-25 13:42] LABS: INR 1.2 (0.8-1.2); PROTHROMBIN TIME 11.9 SECS (9.5-12.5)
[2020-03-25 14:55] VITALS: BP_SYST 101
== END 2020-03-25 14:55 | disposition home or self-care (01) ==
LOC: SED 11:41
DX: R60.0 Localized edema (principal); Z79.899 Other long term (current) drug therapy
CPT/HCPCS: 36415; 71045; 80053; 84484; 85025; 85610-TC; 85730-TC; 93005; 93970; 99285

== ENCOUNTER 2020-07-18 06:54 | Day surgery (SDC) | payer MEDICAID, SELFPAY ==
[~2020-07-18] VITALS: Ht 157.5 cm; Wt 63.5 kg
[2020-07-18] MEDS ORDERED: fentaNYL CITRATE/PF 100 MCG/2 ML AMP ONE (07:41)
[2020-07-18] MEDS ORDERED: SIMETHICONE 40 MG/0.6 ML ML ONE (07:41)
[2020-07-18] MEDS ORDERED: MIDAZOLAM HCL 5 MG/5 ML VIAL ONE (07:42)
[2020-07-18 14:58] VITALS: BP_SYST 105
== END 2020-07-18 09:25 | disposition home or self-care (01) ==
LOC: SDS 06:54 → SMU 06:54 → SDS 09:25
PROVIDERS: ATTEND Internal Medicine
DX: I85.00 Esophageal varices without bleeding (principal); K29.50 Unspecified chronic gastritis without bleeding; K20.90 Esophagitis, unspecified without bleeding; K74.60 Unspecified cirrhosis of liver; K26.9 Duodenal ulcer, unspecified as acute or chronic, without hemorrhage or perforation; J45.909 Unspecified asthma, uncomplicated; Z79.899 Other long term (current) drug therapy; Z20.822 Contact with and (suspected) exposure to COVID-19
CPT/HCPCS: 36415; 43239; 87081; 88305; 88312; 88313; 99152; G0378; J2250; J3010; J7030; U0003

== ENCOUNTER 2020-08-21 21:08 | Emergency (ER) | payer MEDICAID, SELFPAY ==
[~2020-08-21] VITALS: Ht 157.5 cm; Wt 63.5 kg
[~2020-08-21 21:08] MED LIST changes: -ALBMDI INH; -ALPR1TAB2 PO; +ARIP2TAB3 PO; -CEL20 PO; -DICY10CA59 PO; -DIPH25CA83 PO; -DOCU-144 PO; -ESCI10TA PO; +ESCI20TA PO; +FERR236T3 PO; -FURO-149 PO; +HYDR-3919 PO; -HYDR4TAB26 PO; -IPRA3AMP9 INH; -LACT10SO66 PO; -LEVO500T20 PO; -METH4TAB3 PO; -MORP15TA60 PO; -ONDA4TAB5 PO; -POTA20TA83 PO; -SPIR50TA5 PO; -TYC3 PO; +VIS50 PO
[2020-08-21 21:32] VITALS: BP_SYST 103
[2020-08-21 23:30] VITALS: BP_SYST 108
== END 2020-08-21 23:30 | disposition home or self-care (01) ==
LOC: SED 21:08
DX: T85.691A Other mechanical complication of intraperitoneal dialysis catheter, initial encounter (principal)
CPT/HCPCS: 99281

== ENCOUNTER 2020-12-20 06:57 | Day surgery (SDC) | payer MEDICAID, SELFPAY ==
[~2020-12-20] VITALS: Ht 157.5 cm; Wt 65.8 kg
[2020-12-20] MEDS ORDERED: SIMETHICONE 40 MG/0.6 ML ML ONE (08:02)
[2020-12-20] MEDS: fentaNYL CITRATE/PF 100 MCG/2 ML AMP ONE ×2 (08:25→08:29)
[2020-12-20] MEDS: MIDAZOLAM HCL 5 MG/5 ML VIAL ONE ×2 (08:25→08:29)
[2020-12-20 15:17] VITALS: BP_SYST 154
== END 2020-12-20 10:03 | disposition home or self-care (01) ==
LOC: SDS 06:57 → SMU 06:58 → SDS 10:03
PROVIDERS: ATTEND Internal Medicine
DX: K70.30 Alcoholic cirrhosis of liver without ascites (principal); I85.00 Esophageal varices without bleeding; K31.9 Disease of stomach and duodenum, unspecified; K44.9 Diaphragmatic hernia without obstruction or gangrene; K27.9 Peptic ulcer, site unspecified, unspecified as acute or chronic, without hemorrhage or perforation; F17.210 Nicotine dependence, cigarettes, uncomplicated; K29.50 Unspecified chronic gastritis without bleeding; Z86.010 Personal history of colon polyps; Z20.822 Contact with and (suspected) exposure to COVID-19; Z79.899 Other long term (current) drug therapy
CPT/HCPCS: 36415; 43239; 43244; 87081; 88305; 88312; 88313; 99152; G0378; J2250; J3010; U0003

== ENCOUNTER 2021-01-02 15:39 | Inpatient (IN) | payer MEDICAID, SELFPAY ==
[~2021-01-02] VITALS: Ht 157.5 cm; Wt 65.8 kg
[2021-01-02 15:55] VITALS: BP_SYST 102
[2021-01-02 17:55] LABS: BASOPHILS # (AUTO) 0.1 K/uL (0.0-0.2); BASOPHILS % (AUTO) 0.7 % (0.0-2.0); EOSINOPHILS # (AUTO) 0.1 K/uL (0.0-0.4); EOSINOPHILS % (AUTO) 1.2 % (0.0-4.0); HEMATOCRIT 34.5 % (36-48); HEMOGLOBIN 11.6 g/dL (12.0-16.0); LYMPHOCYTES # (AUTO) 1.8 K/uL (1.0-5.5); LYMPHOCYTES % (AUTO) 19.2 % (20.5-51.5); MEAN CORPUSCULAR HEMOGLOBIN 33 pg (27-31); MEAN CORPUSCULAR HGB CONC 34 % (32-36); MEAN CORPUSCULAR VOLUME 99 fL (79.0-98.0); MONOCYTES # (AUTO) 0.8 K/uL (0.0-1.0); MONOCYTES % (AUTO) 8.5 % (1.7-9.3); NEUTROPHILS # (AUTO) 6.8 K/uL (1.8-7.7); NEUTROPHILS % (AUTO) 70.4 % (40.0-70.0); PLATELET COUNT (AUTO) 85 K/uL (130-430); RED BLOOD CELL COUNT(AUTO) 3.48 MIL/uL (4.2-6.2); RED CELL DISTRIBUTION WIDTH 14.9 % (9.0-15.0); WHITE BLOOD COUNT (AUTO) 9.6 K/uL (4.8-10.8)
[2021-01-02 18:09] LABS: CALCIUM 9.3 mg/dL (8.4-11.0); CREATININE 0.91 mg/dL (0.55-1.30); POTASSIUM 5.1 mmol/L (3.5-5.1)
[2021-01-02 18:15] LABS: ALBUMIN 3.4 g/dL (3.4-4.8); TOTAL BILIRUBIN 1.5 mg/dL (0.0-1.0)
[2021-01-02 18:35] LABS: INR 1.2 (0.8-1.2); PROTHROMBIN TIME 12.9 SECS (9.5-12.5)
--- NOTE | 2021-01-02 19:57 | NUR ---
Placed in room 8 . Placed on supervisor facepiece line, blood pressure machine and pulse oximeter. To jacquelyn for exam. Side rails up. Report given to . Addendum: 01/02/21 at 1957 by SDEDPR REPORT DAVID TO ROMEO MURRIETA
--- NOTE | 2021-01-02 20:04 | NUR ---
PT BIB FAMILY TO ED C/O 2 EPISODES OF BRIGHT RED BLOODY EMESIS TODAY AND BLACK TARRY STOOLS VSS NO S/S OF ACUTE DISTRESS RESTING ON GURNEY RAILS UP
[2021-01-02] MEDS ORDERED: OCTREOTIDE ACETATE 500 MCG in NS 247.5 ML IV ONE (20:45)
[2021-01-02] MEDS ORDERED: PANTOPRAZOLE SODIUM 80 MG in NS 100 ML IVP ONE (20:45)
[2021-01-02] MEDS ORDERED: HYDROmorphone 1 MG/ML INJ. CARTRIDGE IVP ONE (20:45)
[2021-01-02] MEDS ORDERED: PANTOPRAZOLE SODIUM 40 MG in NS 50 ML IV SCH (20:45)
[2021-01-02] MEDS ORDERED: PANTOPRAZOLE SODIUM 40 MG/VIAL (PROTONIX) ONE ×2 (20:58→21:15)
[2021-01-02] MEDS ORDERED: cefTRIAXone 1 GM VIAL IM ONE (21:00)
[2021-01-02] MEDS ORDERED: OCTREOTIDE ACETATE 200 MCG/1 ML 5ML VIAL ONE (21:17)
--- NOTE | 2021-01-02 21:20 | NUR ---
VSS no s/s of acute distress, BP stable with MAP of 75 or above
--- NOTE | 2021-01-02 22:26 | NUR ---
episodic hemoptysis, with 10 to 20 ml of tu blood, Dr. Naranjo aware
[2021-01-02] MEDS ORDERED: OCTREOTIDE ACETATE 500 MCG in NS 97.5 ML IV SCH (23:00)
[2021-01-02] MEDS ORDERED: NACL 0.9% 1,000 ML IV SCH (23:00)
[2021-01-02] MEDS ORDERED: MORPHINE 2 MG/ML INJ. SYRINGE IVP PRN (23:15)
[2021-01-02] MEDS ORDERED: NALOXONE HCL 0.4 MG/ML AMP (NARCAN) IVP PRN (23:15)
[2021-01-02] MEDS ORDERED: NICOTINE 21 MG/24 HR PATCH.TD24 TD SCH (23:15)
[2021-01-02] MEDS ORDERED: ONDANSETRON HCL 4 MG/2 ML VIAL IVP PRN (23:15)
[2021-01-02] MEDS ORDERED: MORPHINE 4 MG INJ. 4 MG/ML VIAL IVP PRN (23:15)
--- NOTE | 2021-01-02 23:31 | NUR ---
VSS no s/s of acute distress, remains on Sandostatin IV gtt, well tolerated
[2021-01-02 23:38] LABS: BASOPHILS % (AUTO) 0.4 % (0.0-2.0); EOSINOPHILS % (AUTO) 0.3 % (0.0-4.0); HEMATOCRIT 30.4 % (36-48); HEMOGLOBIN 10.1 g/dL (12.0-16.0); LYMPHOCYTES # (AUTO) 2.3 K/uL (1.0-5.5); LYMPHOCYTES % (AUTO) 19.8 % (20.5-51.5); MEAN CORPUSCULAR HEMOGLOBIN 33 pg (27-31); MEAN CORPUSCULAR HGB CONC 33 % (32-36); MONOCYTES # (AUTO) 0.9 K/uL (0.0-1.0); MONOCYTES % (AUTO) 8.1 % (1.7-9.3); NEUTROPHILS # (AUTO) 8.3 K/uL (1.8-7.7); NEUTROPHILS % (AUTO) 71.4 % (40.0-70.0); PLATELET COUNT (AUTO) 87 K/uL (130-430); RED BLOOD CELL COUNT(AUTO) 3.03 MIL/uL (4.2-6.2); RED CELL DISTRIBUTION WIDTH 15.2 % (9.0-15.0); WHITE BLOOD COUNT (AUTO) 11.6 K/uL (4.8-10.8)
[2021-01-02 23:41] LABS: MEAN CORPUSCULAR VOLUME 100 fL (79.0-98.0)
--- NOTE | 2021-01-03 00:20 | NUR ---
Patient will be admitted to care of Dr. Mcqueen. Admitted to Tele unit. Will go to room 103A. Belongings list completed. Complete and up to date summary report printed. SBAR report to be given at bedside with opportunity for questions.
--- NOTE | 2021-01-03 00:20 | NUR ---
PT ARRIVED ON UNIT A THIS TIME. PT HERE FOR GIB. PT A+O*NPTE. PT AMBULARY, HAS SANDOSTAIN A 5ML/HR INFUSING INTO RA IV SITE (22G). PT ORIENTED TO UNIT.
--- NOTE | 2021-01-03 00:20 | NUR ---
Transfer to Tele via ACLS protocol. Licensed nurse present. IV present no signs or symptoms of infiltration.
--- NOTE | 2021-01-03 03:21 | NUR ---
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
[2021-01-03] MEDS: PANTOPRAZOLE SODIUM 40 MG in NS 50 ML IV SCH (04:00)
[2021-01-03 07:02] LABS: BASOPHILS # (AUTO) 0.1 K/uL (0.0-0.2); BASOPHILS % (AUTO) 0.9 % (0.0-2.0); EOSINOPHILS % (AUTO) 0.2 % (0.0-4.0); HEMATOCRIT 27.2 % (36-48); HEMOGLOBIN 9.1 g/dL (12.0-16.0); LYMPHOCYTES # (AUTO) 2.2 K/uL (1.0-5.5); LYMPHOCYTES % (AUTO) 22.6 % (20.5-51.5); MEAN CORPUSCULAR HEMOGLOBIN 34 pg (27-31); MEAN CORPUSCULAR HGB CONC 34 % (32-36); MEAN CORPUSCULAR VOLUME 100 fL (79.0-98.0); MONOCYTES # (AUTO) 0.9 K/uL (0.0-1.0); MONOCYTES % (AUTO) 9.4 % (1.7-9.3); NEUTROPHILS # (AUTO) 6.6 K/uL (1.8-7.7); NEUTROPHILS % (AUTO) 66.9 % (40.0-70.0); PLATELET COUNT (AUTO) 73 K/uL (130-430); RED BLOOD CELL COUNT(AUTO) 2.73 MIL/uL (4.2-6.2); RED CELL DISTRIBUTION WIDTH 15.2 % (9.0-15.0); WHITE BLOOD COUNT (AUTO) 9.8 K/uL (4.8-10.8)
[2021-01-03 07:52] LABS: ALBUMIN 2.9 g/dL (3.4-4.8); CALCIUM 8.3 mg/dL (8.4-11.0); CREATININE 1.2 mg/dL (0.55-1.30); POTASSIUM 4.7 mmol/L (3.5-5.1); TOTAL BILIRUBIN 0.8 mg/dL (0.0-1.0)
--- NOTE | 2021-01-03 08:57 | NUR ---
alert, oriented, and very calm when first seen this am. Had banding procedure one week prior to this admission, came home, and per patient's report, " continue to drink, with my , as my partner". adamantly not want to quit alcohol. advised if she feels any etoh withdrawal, she would call for medications. now awaiting CT of abdomen and pelvis , while drinking contrast.
[2021-01-03] MEDS ORDERED: DIATR MEGLU/DIATRIZ SOD 30 ML SOLUTION PO ONE (08:59)
[2021-01-03 09:01] VITALS: BP_SYST 87
[2021-01-03] MEDS: LORazepam 2 MG/ML VIAL IVP PRN (10:25)
[2021-01-03 12:00] VITALS: BP_SYST 98
[2021-01-03 16:00] VITALS: BP_SYST 85
[2021-01-03] MEDS: OCTREOTIDE ACETATE 500 MCG in NS 97.5 ML IV SCH (16:15)
[2021-01-03 20:00] VITALS: BP_SYST 88
[2021-01-04] MEDS: OCTREOTIDE ACETATE 500 MCG in NS 97.5 ML IV SCH (00:25)
[2021-01-04] MEDS: PANTOPRAZOLE SODIUM 40 MG in NS 50 ML IV SCH (01:44)
--- NOTE | 2021-01-04 04:39 | NUR ---
Pt went to restroom (to void) and bedding was all straightened up. Pt ambulated well and w/o complaints.
--- NOTE | 2021-01-04 05:31 | NUR ---
paged Dr. Mcqueen re stable low BP.
[2021-01-04 05:32] VITALS: BP_SYST 86
--- NOTE | 2021-01-04 05:32 | NUR ---
Franklin Mcqueen s/w Natacha
--- NOTE | 2021-01-04 05:43 | NUR ---
Dr. Mcqueen returned call and ordered for sandostatin to be stopped. Order carried out. BP 88/51. Will continue to monitor.
[2021-01-04] MEDS ORDERED: ALBUMIN HUMAN 25% 50 ML IV SCH ×2 (06:15→06:30)
[2021-01-04] MEDS ORDERED: ALBUMIN HUMAN 25% 50 ML IV ONE (06:38)
[2021-01-04] MEDS ORDERED: MEPERIDINE 100 MG INJ. 100 MG/ML VIAL ONE (06:40)
[2021-01-04] MEDS ORDERED: MIDAZOLAM HCL 5 MG/5 ML VIAL ONE (06:40)
[2021-01-04 06:42] LABS: EOSINOPHILS # (AUTO) 0.2 K/uL (0.0-0.4); EOSINOPHILS % (AUTO) 3.1 % (0.0-4.0); HEMATOCRIT 22.7 % (36-48); HEMOGLOBIN 7.6 g/dL (12.0-16.0); LYMPHOCYTES # (AUTO) 2.6 K/uL (1.0-5.5); LYMPHOCYTES % (AUTO) 36.7 % (20.5-51.5); MEAN CORPUSCULAR HEMOGLOBIN 34 pg (27-31); MEAN CORPUSCULAR HGB CONC 33 % (32-36); MEAN CORPUSCULAR VOLUME 101 fL (79.0-98.0); MONOCYTES # (AUTO) 0.6 K/uL (0.0-1.0); MONOCYTES % (AUTO) 8.3 % (1.7-9.3); PLATELET COUNT (AUTO) 65 K/uL (130-430); RED BLOOD CELL COUNT(AUTO) 2.26 MIL/uL (4.2-6.2); RED CELL DISTRIBUTION WIDTH 15.2 % (9.0-15.0); WHITE BLOOD COUNT (AUTO) 6.9 K/uL (4.8-10.8)
[2021-01-04 06:44] LABS: INR 1.1 (0.8-1.2); PROTHROMBIN TIME 11.8 SECS (9.5-12.5)
[2021-01-04 06:55] LABS: ALBUMIN 2.9 g/dL (3.4-4.8); CALCIUM 7.9 mg/dL (8.4-11.0); CREATININE 1.02 mg/dL (0.55-1.30); TOTAL BILIRUBIN 0.9 mg/dL (0.0-1.0)
--- NOTE | 2021-01-04 07:15 | NUR ---
PT GIVEN ALBUMIN 50ML AT 100ML/HR (COMPLETED). PT ALSO CONSENTED AT THAT TIME FOR EGD (11.4). PT ALERT, ORIENTED X4; SANDOSTATIN ALREADY STOPPED.
[2021-01-04] MEDS ORDERED: DIPHENHYDRAMINE INJ 50 MG/ML VIAL ONE (07:18)
[2021-01-04 08:00] VITALS: BP_SYST 87
--- NOTE | 2021-01-04 08:10 | NUR ---
back from GI lab right now, droggy, but able to answer questions appropriately. bp in the 80's , ivf restarted right away, will monitor closely
[2021-01-04 10:02] LABS: NEUTROPHILS % (AUTO) 51.5 % (40.0-70.0)
[2021-01-04 10:03] LABS: BASOPHILS % (AUTO) 0.4 % (0.0-2.0); NEUTROPHILS # (AUTO) 3.6 K/uL (1.8-7.7)
[2021-01-04] MEDS ORDERED: ONDANSETRON HCL 4 MG/2 ML VIAL IVP PRN (11:15)
[2021-01-04 12:10] VITALS: BP_SYST 90
[2021-01-04] MEDS: LORazepam 2 MG/ML VIAL IVP PRN (14:11)
[2021-01-04] MEDS: PROPRANOLOL HCL 10 MG TABLET (INDERAL) PO SCH ×3 (14:12→20:28)
--- NOTE | 2021-01-04 14:45 | NUR ---
first dose of INDERAL 10mg po given when back from GI now a second dose given, " it helped me with tremors a lot, however, i felt so anxious, could i have some ATIVAN to calm me down one mg Ativan ivp administered as requested. awaiting blood tx, for H & H 7.6/22.7, one PRBC when available.
[2021-01-04 15:47] VITALS: BP_SYST 89
[2021-01-04 16:12] VITALS: BP_SYST 97
--- NOTE | 2021-01-04 18:33 | NUR ---
ONLY UNIT OF PRBC BEGAN AT 1725 THIS EVENING, SO FAR TOLERATED WELL. ONCOMING TO FOLLOW THROUGH TIL THE END
--- NOTE | 2021-01-04 19:15 | NUR ---
OPENING NOTE REPORT RECEIVED FROM DAYSHIFT NURSE. PATIENT RECEIVED LYING IN BED, AWAKE, NO S/S OF ACUTE DISTRESS. PATIENT DENIES PAIN. BREATHING EVEN AND UNLABORED. HOB RAISED. BLOOD TRANSFUSION INFUSING AT THIS TIME. IV SITE IS PATENT, NO SIGNS OF INFILTRATION OR INFECTION NOTED. NO ADVERSE REACTIONS NOTED AT THIS TIME. CALL LIGHT WITH PATIENT. INSTRUCTED TO CALL FOR ANY ASSISTANCE, PATIENT VERBALIZED UNDERSTANDING AND DEMONSTRATED BACK PROPER USE OF CALL LIGHT. BED IS LOCKED AND AT LOWEST POSITION. WILL CONTINUE TO MONITOR.
[2021-01-04 20:00] VITALS: BP_SYST 91
[2021-01-05] VITALS: BP_SYST 94
--- NOTE | 2021-01-05 06:27 | NUR ---
CLOSING NOTE PATIENT IN BED, AWAKE, NO S/S OF ACUTE DISTRESS, DENIES PAIN. BREATHING EVEN AND UNLABORED. IV SITE IS PATENT, NO SIGNS OF INFILTRATION OR INFECTION NOTED. NO SIGNS OF ACTIVE BLEEDING NOTED. ALL NEEDS MET THROUGHOUT SHIFT. FALL, SAFETY PRECAUTIONS MAINTAINED THROUGHOUT SHIFT. WILL CONTINUE TO MONITOR UNTIL PATIENT CARE IS ENDORSED TO ONCOMING DAYSHIFT NURSE.
[2021-01-05 07:27] LABS: BASOPHILS % (AUTO) 0.7 % (0.0-2.0); EOSINOPHILS # (AUTO) 0.1 K/uL (0.0-0.4); EOSINOPHILS % (AUTO) 2.4 % (0.0-4.0); HEMOGLOBIN 7.1 g/dL (12.0-16.0); LYMPHOCYTES # (AUTO) 1.4 K/uL (1.0-5.5); LYMPHOCYTES % (AUTO) 25.6 % (20.5-51.5); MEAN CORPUSCULAR HEMOGLOBIN 33 pg (27-31); MEAN CORPUSCULAR HGB CONC 33 % (32-36); MEAN CORPUSCULAR VOLUME 99 fL (79.0-98.0); MONOCYTES # (AUTO) 0.5 K/uL (0.0-1.0); MONOCYTES % (AUTO) 8.3 % (1.7-9.3); NEUTROPHILS # (AUTO) 3.5 K/uL (1.8-7.7); PLATELET COUNT (AUTO) 51 K/uL (130-430); RED BLOOD CELL COUNT(AUTO) 2.14 MIL/uL (4.2-6.2); RED CELL DISTRIBUTION WIDTH 16.3 % (9.0-15.0); WHITE BLOOD COUNT (AUTO) 5.6 K/uL (4.8-10.8)
[2021-01-05 08:00] VITALS: BP_SYST 106
[2021-01-05] MEDS: PROPRANOLOL HCL 10 MG TABLET (INDERAL) PO SCH ×3 (08:46→21:37)
--- NOTE | 2021-01-05 08:47 | NUR ---
alert, awake, oriented, appearingly anxious to get out of here, Patient's rights reviewed with the patient and she will decide from there. Getting agitated, continues to ask the time when her attending will be making rounds, so she can go home. Advised to wait for him or sign out as AMA. " will wait, then"
[2021-01-05 08:58] LABS: HEMATOCRIT 21.3 % (36-48)
[2021-01-05 08:59] LABS: ALBUMIN 2.7 g/dL (3.4-4.8); CREATININE 0.81 mg/dL (0.55-1.30); POTASSIUM 3.8 mmol/L (3.5-5.1); TOTAL BILIRUBIN 0.5 mg/dL (0.0-1.0)
--- NOTE | 2021-01-05 10:59 | NUR ---
adamantly insists to see the attending, spoke to the charge nurse, " if refused to sign AMA, can walk out if did not want to stay". patient offered choices, still did not want to sign AMA, demands to see the attending. Paged him x1, per patient 's request. H & H trending down today 7.03/22.3 today
[2021-01-05 12:00] VITALS: BP_SYST 106
[2021-01-05] MEDS: LORazepam 2 MG/ML VIAL IVP PRN (12:00)
--- NOTE | 2021-01-05 15:36 | NUR ---
CM: discharge barriers: hemoglobin level is trending down. Pt received 1 unit PRBC yesterday and plans for 2 more units ordered today.
[2021-01-05 16:00] VITALS: BP_SYST 116
--- NOTE | 2021-01-05 16:10 | NUR ---
seen by the attending, one more unit of PRBC ordered for low H & H both patient and made aware, now blood ready to transfuse, spiking temp 101.6, attending paged x 1 for tylenol seen by GI, expected to get Sandostatin back once blood tx completed.
[2021-01-05] MEDS ORDERED: OCTREOTIDE ACETATE 1,250 MCG in NS 243.75 ML IV SCH (17:00)
--- NOTE | 2021-01-05 17:02 | NUR ---
TO FOLLOW THROUGH WITH HER SPIKING TEMP, FOLLOWING THINGS ORDERED 1/ BC X2 2/ URINE CULTURE 3/ ZOSYN IVPB 3.375 IVPB Q 6 HRS 4/ XRAY ONE VIEW TO R/O TB. FOR NOW BLOOD TRANSFUSION PUT ON HOLD PER ATTENDING
[2021-01-05] MEDS: PIPERACILLIN/TAZO 3.375/DEX-IS 50 ML IV SCH ×2 (17:57→23:22)
--- NOTE | 2021-01-05 19:30 | NUR ---
Opening note Pt resting in bed. No s/s of respiratory distress. Breathing even and unlabored. IV site is intact and patent. Fall and safety precautions in place with bed in lowest position with alarm on, and call light within reach
[2021-01-05 20:00] VITALS: BP_SYST 114
[2021-01-05] MEDS: PANTOPRAZOLE SODIUM 40 MG/VIAL (PROTONIX) IVP SCH (21:33)
[2021-01-06] VITALS: BP_SYST 91
--- NOTE | 2021-01-06 00:15 | NUR ---
Rounds Pt sleeping. No s/s of acute distress. No needs at this time. Fall and safety precautions in place
[2021-01-06 04:08] LABS: BILIRUBIN,URINE NEGATIVE (NEGATIVE); BLOOD, URINE 3+ (NEGATIVE); CLARITY/URINE SL CLOUDY (CLEAR); COLOR,URINE YELLOW (YELLOW); GLUCOSE,URINE NEGATIVE (NEGATIVE); KETONES,URINE TRACE (NEGATIVE); LEUKOCYTE ESTERASE ,URINE 1+ (NEGATIVE); NITRITE, URINE NEGATIVE (NEGATIVE); PROTEIN URINE 1+ (NEGATIVE); UROBILINOGEN,URINE 0.2 (0.2-1.0)
[2021-01-06 05:01] LABS: BACTERIA,URINE MODERATE /HPF (None Seen); MUCUS,URINE None Seen /LPF (None Seen); YEAST,URINE None Seen /HPF (None Seen)
--- NOTE | 2021-01-06 05:34 | NUR ---
Franklin Mcqueen s/w Perez
[2021-01-06] MEDS ORDERED: ACETAMINOPHEN 500 MG TABLET PO PRN (05:45)
[2021-01-06] MEDS: PIPERACILLIN/TAZO 3.375/DEX-IS 50 ML IV SCH ×3 (06:13→20:18)
--- NOTE | 2021-01-06 06:45 | NUR ---
Closing note Pt resting in bed. No s/s of respiratory distress. Breathing even and unlabored. Administered Tylenol for 100 F fever. IV sites are intact and patent. Fall and safety precautions are in place with bed in lowest position, bed alarm on, and call light within reach. All needs met throughout shift. Will monitor until endorsed to day shift
[2021-01-06 08:00] VITALS: BP_SYST 85
[2021-01-06 08:06] LABS: BASOPHILS # (AUTO) 0.1 K/uL (0.0-0.2); BASOPHILS % (AUTO) 0.6 % (0.0-2.0); EOSINOPHILS % (AUTO) 0.1 % (0.0-4.0); HEMATOCRIT 22.2 % (36-48); HEMOGLOBIN 7.4 g/dL (12.0-16.0); LYMPHOCYTES # (AUTO) 1.4 K/uL (1.0-5.5); LYMPHOCYTES % (AUTO) 13.1 % (20.5-51.5); MEAN CORPUSCULAR HEMOGLOBIN 34 pg (27-31); MEAN CORPUSCULAR HGB CONC 33 % (32-36); MEAN CORPUSCULAR VOLUME 101 fL (79.0-98.0); MONOCYTES # (AUTO) 0.8 K/uL (0.0-1.0); MONOCYTES % (AUTO) 7.3 % (1.7-9.3); NEUTROPHILS # (AUTO) 8.3 K/uL (1.8-7.7); NEUTROPHILS % (AUTO) 78.9 % (40.0-70.0); RED CELL DISTRIBUTION WIDTH 15.8 % (9.0-15.0); WHITE BLOOD COUNT (AUTO) 10.6 K/uL (4.8-10.8)
[2021-01-06] MEDS: PANTOPRAZOLE SODIUM 40 MG/VIAL (PROTONIX) IVP SCH ×2 (09:00→21:04)
[2021-01-06] MEDS: PROPRANOLOL HCL 10 MG TABLET (INDERAL) PO SCH ×3 (09:00→21:00)
[2021-01-06 09:04] LABS: PLATELET COUNT (AUTO) 46 K/uL (130-430)
--- NOTE | 2021-01-06 09:24 | NUR ---
ATTENDING MD DR DANIEL WAS CALLED , RE: LOW BP (79/37), NO FEVER. SPOKE TO KATIE.
[2021-01-06 09:45] LABS: ALBUMIN 2.8 g/dL (3.4-4.8); CALCIUM 7.3 mg/dL (8.4-11.0); CREATININE 1.28 mg/dL (0.55-1.30); POTASSIUM 3.2 mmol/L (3.5-5.1); TOTAL BILIRUBIN 0.9 mg/dL (0.0-1.0)
[2021-01-06] MEDS ORDERED: NS 500 ML IV ONE (10:45)
[2021-01-06] MEDS: NACL 0.9% 1,000 ML IV SCH (10:45)
--- NOTE | 2021-01-06 12:54 | NUR ---
DC Barriers: LOW BP (79/37), Blood transfusion was on hold yesterday due to fever. New order to transfuse today, Hgb 7.4 /hct 22.2, plt 46, trending down.
[2021-01-06] MEDS ORDERED: POTASSIUM CHLORIDE 20 MEQ/PKT PACKET PO ONE (14:15)
[2021-01-06] MEDS ORDERED: LEVOFLOXACIN IN DEXTROSE 5 % 100 ML IV SCH (15:45)
[2021-01-06 15:56] LABS: TOTAL IRON BIND. CAPACITY 377 ug/dL (250-450)
[2021-01-06 16:00] VITALS: BP_SYST 82
[2021-01-06 16:05] LABS: THYROID STIMULATING HORMONE 0.36 uIu/mL (0.36-3.74)
--- NOTE | 2021-01-06 18:07 | NUR ---
called and spoke DR Mcqueen regarding low blood pressure . 1 unit PRBC given. vital signs monitored during transfusion. no fever noted. no blood transfusion reaction. latest BP 70/62. HR 62. patient is alert and oriented. able to stand up to the commode with no complaints of dizziness. Dr Mcqueen order mad e and carried out. IVF to regulate 100ml/hr.
--- NOTE | 2021-01-06 19:30 | NUR ---
Opening note Received report from day shift. Pt resting in bed. No s/s of respiratory distress. Breathing even and unlabored. IV site is intact and patent with blood transfusion infusing, pt tolerating well. Fall and safety precautions in place with bed in lowest position with alarm on, and call light within reach
--- NOTE | 2021-01-06 19:56 | NUR ---
sosyn 3.375 not given at due time. endorse to incoming shift. Blood transfusion going on.
--- NOTE | 2021-01-06 19:57 | NUR ---
sosyn 3.375 not given at due time. on going blood transfusion. endorse to incoming shift.
[2021-01-06 20:00] VITALS: BP_SYST 90
[2021-01-06] MEDS: POTASSIUM CHLORIDE 20 MEQ/PKT PACKET PO SCH (21:04)
[2021-01-06] MEDS: LACTOBACILLUS RHAMNOSUS GG 1 CAP CAPSULE PO SCH (21:04)
[2021-01-07 00:01] VITALS: BP_SYST 86; BP_SYST 92
--- NOTE | 2021-01-07 00:30 | NUR ---
Rounds Pt is sleeping. No s/s of acute distress. No needs at this time. Fall and safety precautions in place
[2021-01-07] MEDS: PIPERACILLIN/TAZO 3.375/DEX-IS 50 ML IV SCH ×3 (00:45→12:00)
[2021-01-07] MEDS: NACL 0.9% 1,000 ML IV SCH (00:46)
--- NOTE | 2021-01-07 05:12 | NUR ---
Nutrition Update Tomer Scale 17 noted. Pt admitted for Upper GI Bleed Diet: Mechanical soft diet BMI: 26.5 kg/m2 RD to follow per nutrition care standards.
[2021-01-07 06:45] LABS: BASOPHILS % (AUTO) 0.7 % (0.0-2.0); EOSINOPHILS # (AUTO) 0.1 K/uL (0.0-0.4); EOSINOPHILS % (AUTO) 2.3 % (0.0-4.0); HEMATOCRIT 23.8 % (36-48); LYMPHOCYTES # (AUTO) 1.1 K/uL (1.0-5.5); LYMPHOCYTES % (AUTO) 20.5 % (20.5-51.5); MEAN CORPUSCULAR HEMOGLOBIN 34 pg (27-31); MEAN CORPUSCULAR HGB CONC 33 % (32-36); MEAN CORPUSCULAR VOLUME 102 fL (79.0-98.0); MONOCYTES # (AUTO) 0.6 K/uL (0.0-1.0); NEUTROPHILS # (AUTO) 3.4 K/uL (1.8-7.7); NEUTROPHILS % (AUTO) 65.5 % (40.0-70.0); RED BLOOD CELL COUNT(AUTO) 2.33 MIL/uL (4.2-6.2); RED CELL DISTRIBUTION WIDTH 16.7 % (9.0-15.0); WHITE BLOOD COUNT (AUTO) 5.2 K/uL (4.8-10.8)
[2021-01-07 06:51] LABS: ALBUMIN 2.4 g/dL (3.4-4.8); CREATININE 1.04 mg/dL (0.55-1.30); POTASSIUM 3.4 mmol/L (3.5-5.1); TOTAL BILIRUBIN 0.8 mg/dL (0.0-1.0)
--- NOTE | 2021-01-07 06:58 | NUR ---
Closing note Pt resting in bed. No s/s of respiratory distress. Breathing even and unlabored. IV site is intact and patent with fluids running at ordered rate. Fall and safety precautions are in place with bed in lowest position, bed alarm on, and call light within reach. All needs met throughout shift. Will monitor until endorsed to day shift
[2021-01-07 07:51] LABS: PLATELET COUNT (AUTO) 42 K/uL (130-430)
[2021-01-07 08:00] VITALS: BP_SYST 101
[2021-01-07 08:36] LABS: CALCIUM 7.1 mg/dL (8.4-11.0)
[2021-01-07] MEDS: LACTOBACILLUS RHAMNOSUS GG 1 CAP CAPSULE PO SCH (09:00)
[2021-01-07] MEDS: PANTOPRAZOLE SODIUM 40 MG/VIAL (PROTONIX) IVP SCH (09:00)
[2021-01-07] MEDS: POTASSIUM CHLORIDE 20 MEQ/PKT PACKET PO SCH (09:00)
--- NOTE | 2021-01-07 12:28 | NUR ---
Please see the Physical Therapy evaluation that was performed on 01/04/21. Patient demonstrated independent functional mobility today. She does not need an assistive device. She is discharging today to her sister's home.
--- NOTE | 2021-01-07 13:33 | NUR ---
AMA: Patient does not wish to proceed with medical care recommended by Dr Mcqueen. Patient given information related to possible complications, up to and including , which could occur as a result of leaving hospital at this time. Patient verbalizes understanding of risks involved leaving against medical advice. Patient has signed AMA form.IV Cannula removed. no signs of bleeding
[2021-01-07 14:06] LABS: FOLATE (FOLIC ACID) 9.9 ng/mL (>3.0)
[2021-01-07 16:28] VITALS: BP_SYST 131
== END 2021-01-07 13:40 | disposition left against medical advice (07) | DRG 253 ==
LOC: SED 15:39 → STU 21:51 → SMU 01-05 16:38
PROVIDERS: ADMIT Internal Medicine; ATTEND Internal Medicine
PROC: 30233N1 Transfusion of Nonautologous Red Blood Cells into Peripheral Vein, Percutaneous Approach (ICD-10-PCS; 2021-01-04)
PROC: 0DJ08ZZ Inspection of Upper Intestinal Tract, Via Natural or Artificial Opening Endoscopic (ICD-10-PCS; principal; 2021-01-04 07:00)
DX: K92.2 Gastrointestinal hemorrhage, unspecified (principal); D68.9 Coagulation defect, unspecified; D69.6 Thrombocytopenia, unspecified; R65.10 Systemic inflammatory response syndrome (SIRS) of non-infectious origin without acute organ dysfunction; E44.1 Mild protein-calorie malnutrition; K70.30 Alcoholic cirrhosis of liver without ascites; I85.10 Secondary esophageal varices without bleeding; N39.0 Urinary tract infection, site not specified; D62 Acute posthemorrhagic anemia; F10.20 Alcohol dependence, uncomplicated; E66.9 Obesity, unspecified; Z53.29 Procedure and treatment not carried out because of patient's decision for other reasons; J44.9 Chronic obstructive pulmonary disease, unspecified; F12.20 Cannabis dependence, uncomplicated; F17.200 Nicotine dependence, unspecified, uncomplicated; K44.9 Diaphragmatic hernia without obstruction or gangrene; K31.89 Other diseases of stomach and duodenum; T36.0X5A Adverse effect of penicillins, initial encounter; Y92.238 Other place in hospital as the place of occurrence of the external cause; Z20.822 Contact with and (suspected) exposure to COVID-19; Y90.9 Presence of alcohol in blood, level not specified; Z79.899 Other long term (current) drug therapy; Z90.710 Acquired absence of both cervix and uterus; Z68.26 Body mass index [BMI] 26.0-26.9, adult
CPT/HCPCS: 36415; 36430; 43235; 71045; 76376; 80053; 81000; 82272; 82607; 82746; 83540; 83550; 83690; 83735; 84443; 85025; 85610-TC; 85730-TC; 86710; 86886; 86900; 86901; 86920; 87040-TC; 87081; 87086; 87230-TC; 93005; 96372; 96374; 96375; 99285; C9113; G0378; J0696; J1170; J1200; J1956; J2060; J2175; J2250; J2354; J2543; J7050; P9021; P9046; Q9964; Q9967

== ENCOUNTER 2021-04-08 06:51 | Day surgery (SDC) | payer MEDICAID, SELFPAY ==
[~2021-04-08] VITALS: Ht 157.5 cm; Wt 68.0 kg
[2021-04-08] MEDS ORDERED: fentaNYL CITRATE/PF 100 MCG/2 ML AMP ONE (08:37)
[2021-04-08] MEDS ORDERED: MIDAZOLAM HCL 5 MG/5 ML VIAL ONE (08:37)
[2021-04-09 15:59] VITALS: BP_SYST 127
== END 2021-04-08 09:50 | disposition home or self-care (01) ==
LOC: SDS 06:51 → SMU 06:52 → SDS 09:50
PROVIDERS: ATTEND Internal Medicine
DX: K74.60 Unspecified cirrhosis of liver (principal); I85.10 Secondary esophageal varices without bleeding; K44.9 Diaphragmatic hernia without obstruction or gangrene; K31.9 Disease of stomach and duodenum, unspecified; J45.909 Unspecified asthma, uncomplicated; Z20.822 Contact with and (suspected) exposure to COVID-19; Z79.899 Other long term (current) drug therapy
CPT/HCPCS: 36415; 43239; 43244; 87081; 87426; 88305; 88312; 88313; G0378; J2250; J3010; U0003

== ENCOUNTER 2022-07-22 07:44 | Day surgery (SDC) | payer MEDICAID ==
[~2022-07-22] VITALS: Ht 157.5 cm; Wt 72.3 kg
[~2022-07-22 07:44] MED LIST changes: -ARIP2TAB3 PO; +ARIP5TAB42 PO
[2022-07-22] MEDS ORDERED: MIDAZOLAM HCL 5 MG/5 ML VIAL ONE (08:27)
[2022-07-22] MEDS ORDERED: fentaNYL CITRATE/PF 100 MCG/2 ML AMP ONE (08:27)
[2022-07-22] MEDS ORDERED: ONDANSETRON HCL 4 MG/2 ML VIAL ONE (09:05)
[2022-07-22 12:01] VITALS: BP_SYST 126
== END 2022-07-22 10:00 | disposition home or self-care (01) ==
LOC: SDS 07:44 → SMU 07:45 → SDS 10:00
PROVIDERS: ATTEND Internal Medicine
DX: Z12.11 Encounter for screening for malignant neoplasm of colon (principal); D12.3 Benign neoplasm of transverse colon; D12.4 Benign neoplasm of descending colon; I85.10 Secondary esophageal varices without bleeding; K70.30 Alcoholic cirrhosis of liver without ascites; K21.9 Gastro-esophageal reflux disease without esophagitis; J45.909 Unspecified asthma, uncomplicated; Z90.710 Acquired absence of both cervix and uterus; Z86.010 Personal history of colon polyps; K31.89 Other diseases of stomach and duodenum; F17.210 Nicotine dependence, cigarettes, uncomplicated; Z79.899 Other long term (current) drug therapy
CPT/HCPCS: 43244; 87081; 36415; 45380; 43239; 45385; 88305; 99152; 99153; G0378; J2250; J2405; J3010

== ENCOUNTER 2022-08-06 10:58 | Emergency (ER) | payer MEDICAID ==
[~2022-08-06] VITALS: Ht 157.5 cm; Wt 71.2 kg
[2022-08-06 11:00] VITALS: BP_SYST 125
--- NOTE | 2022-08-06 11:00 | NUR ---
PT BIB BOYFRIEND, AWAKE AND ALERT AOX4, NO SOB. PT C/O DIAHRREA FOR X16 DAYS. PT DENIES N/V. PT HAS HX OF LIVER CIRRHOSIS. PT HAS HECTORECTOMY AND SX.
--- NOTE | 2022-08-06 11:02 | NUR ---
BROUGHT BACK TO BED #5 AND TRIAGED. REPORT GIVEN TO REBA
--- NOTE | 2022-08-06 11:05 | NUR ---
MD DR OLSEN AT BEDSIDE
[2022-08-06 11:42] LABS: BASOPHILS % (AUTO) 0.5 % (0.0-2.0); EOSINOPHILS # (AUTO) 0.1 K/uL (0.0-0.4); EOSINOPHILS % (AUTO) 2.1 % (0.0-4.0); HEMATOCRIT 29.3 % (36-48); HEMOGLOBIN 9.2 g/dL (12.0-16.0); LYMPHOCYTES # (AUTO) 0.7 K/uL (1.0-5.5); LYMPHOCYTES % (AUTO) 16.4 % (20.5-51.5); MEAN CORPUSCULAR HEMOGLOBIN 25 pg (27-31); MEAN CORPUSCULAR HGB CONC 31 % (32-36); MEAN CORPUSCULAR VOLUME 78 fL (79.0-98.0); MONOCYTES # (AUTO) 0.3 K/uL (0.0-1.0); MONOCYTES % (AUTO) 7.2 % (1.7-9.3); NEUTROPHILS # (AUTO) 3.3 K/uL (1.8-7.7); NEUTROPHILS % (AUTO) 73.8 % (40.0-70.0); PLATELET COUNT (AUTO) 55 K/uL (130-430); RED BLOOD CELL COUNT(AUTO) 3.74 MIL/uL (4.2-6.2); RED CELL DISTRIBUTION WIDTH 24.6 % (9.0-15.0); WHITE BLOOD COUNT (AUTO) 4.5 K/uL (4.8-10.8)
[2022-08-06 11:51] LABS: ANION GAP 11 (5-15); CALCIUM 8.4 mg/dL (8.4-11.0); CHLORIDE 99 mmol/L (98-107); CREATININE 0.87 mg/dL (0.55-1.30); GFR AFRICAN AMERICAN 85 mL/min (>90); GLUCOSE 124 mg/dL (70-99); UREA NITROGEN, BLOOD 2 mg/dL (8-21)
[2022-08-06 11:57] LABS: ALANINE AMINOTRANSFERASE 47 U/L (12-78); ALBUMIN 3.1 g/dL (3.4-4.8); AMYLASE 43 U/L (0-100); ASPARTATE AMINOTRANSFERASE 112 U/L (10-37); C-REACTIVE PROTEIN QUANT 0.4 mg/dL (0-0.5); LIPASE 130 U/L (73-393)
[2022-08-06 12:01] LABS: ACETONE, SERUM NEGATIVE (NEGATIVE)
[2022-08-06] MEDS ORDERED: LOM2.5 PO (13:02)
[2022-08-06] MEDS ORDERED: NEOM28.37 TP (13:07)
[2022-08-06 13:30] LABS: BILIRUBIN,URINE 2+ (NEGATIVE); BLOOD, URINE NEGATIVE (NEGATIVE); GLUCOSE,URINE NEGATIVE (NEGATIVE); KETONES,URINE 1+ (NEGATIVE); LEUKOCYTE ESTERASE ,URINE NEGATIVE (NEGATIVE); NITRITE, URINE POSITIVE (NEGATIVE); PH,URINE 6.5 (5.0-8.0); PROTEIN URINE 2+ (NEGATIVE)
[2022-08-06 13:35] LABS: CLARITY/URINE HAZY (CLEAR); COLOR,URINE AMBER (YELLOW)
[2022-08-06 13:53] LABS: BACTERIA,URINE MANY /HPF (None Seen); RBC,URINE 0-3 /HPF (0-3)
[2022-08-06 14:02] VITALS: BP_SYST 125
--- NOTE | 2022-08-06 14:04 | NUR ---
Patient given written and verbal discharge instructions and verbalizes understanding. ER MD OLSEN discussed with patient the results and treatment provided. Patient in stable condition. ID arm band removed. Rx of DIPHENOXYLATE given. Patient educated on pain management and to follow up with PMD. Pain Scale 0/10. Opportunity for questions provided and answered. Medication side effect fact sheet provided.
== END 2022-08-06 14:02 | disposition home or self-care (01) ==
LOC: SED 10:58
DX: R19.7 Diarrhea, unspecified (principal); M54.50 Low back pain, unspecified; J44.9 Chronic obstructive pulmonary disease, unspecified; Z79.899 Other long term (current) drug therapy
CPT/HCPCS: 36415; 76376; 80053; 81000; 82009; 82150; 83605; 83690; 85025; 86140; 87086; 99284

== ENCOUNTER 2022-09-09 13:43 | Emergency (ER) | payer MEDICAID ==
[~2022-09-09] VITALS: Ht 160 cm; Wt 74.8 kg
[~2022-09-09 13:43] MED LIST changes: +LOM2.5 PO; +NEOM28.37 TP
--- NOTE | 2022-09-09 13:55 | NUR ---
Placed in room 07 . Placed on playground monitor, blood pressure machine and pulse oximeter. To gown for exam. Side rails up.
[2022-09-09 13:56] VITALS: BP_SYST 136; PULSE 85; RESP 18; TEMP 98.3; O2SAT 98
--- NOTE | 2022-09-09 14:30 | NUR ---
DR VERDE IN ROOM FOR EXAM
[2022-09-09 14:51] LABS: BILIRUBIN,URINE NEGATIVE (NEGATIVE); BLOOD, URINE NEGATIVE (NEGATIVE); CLARITY/URINE CLEAR (CLEAR); COLOR,URINE YELLOW (YELLOW); GLUCOSE,URINE NEGATIVE (NEGATIVE); KETONES,URINE NEGATIVE (NEGATIVE); LEUKOCYTE ESTERASE ,URINE NEGATIVE (NEGATIVE); NITRITE, URINE NEGATIVE (NEGATIVE); PROTEIN URINE NEGATIVE (NEGATIVE); UROBILINOGEN,URINE 0.2 (0.2-1.0)
--- NOTE | 2022-09-09 15:16 | NUR ---
PY WITH EYES CLOSED, IN NAD. RESP EVEN AND UNLABORED, ON RA @98%.
[2022-09-09 15:31] LABS: BASOPHILS % (AUTO) 0.9 % (0.0-2.0); EOSINOPHILS # (AUTO) 0.1 K/uL (0.0-0.4); EOSINOPHILS % (AUTO) 2.6 % (0.0-4.0); HEMATOCRIT 23.7 % (36-48); HEMOGLOBIN 7.7 g/dL (12.0-16.0); LYMPHOCYTES # (AUTO) 0.7 K/uL (1.0-5.5); LYMPHOCYTES % (AUTO) 24.5 % (20.5-51.5); MEAN CORPUSCULAR HEMOGLOBIN 28 pg (27-31); MEAN CORPUSCULAR HGB CONC 32 % (32-36); MEAN CORPUSCULAR VOLUME 87 fL (79.0-98.0); MONOCYTES # (AUTO) 0.2 K/uL (0.0-1.0); NEUTROPHILS # (AUTO) 1.7 K/uL (1.8-7.7); RED BLOOD CELL COUNT(AUTO) 2.72 MIL/uL (4.2-6.2); RED CELL DISTRIBUTION WIDTH 28.5 % (9.0-15.0); WHITE BLOOD COUNT (AUTO) 2.7 K/uL (4.8-10.8)
[2022-09-09 15:41] LABS: CALCIUM 8.2 mg/dL (8.4-11.0); CREATININE 0.68 mg/dL (0.55-1.30)
[2022-09-09 15:46] LABS: ALBUMIN 2.3 g/dL (3.4-4.8); TOTAL BILIRUBIN 2.4 mg/dL (0.0-1.0)
[2022-09-09 15:55] LABS: PLATELET COUNT (AUTO) 39 K/uL (130-430)
[2022-09-09] MEDS ORDERED: SPIR25TA6 PO (16:04)
--- NOTE | 2022-09-09 16:10 | NUR ---
Patient given written and verbal discharge instructions and verbalizes understanding. ER MD discussed with patient the results and treatment provided. Patient in stable condition. ID arm band removed. SPIRONALCTONE RX GIVEN
[2022-09-09 16:12] VITALS: BP_SYST 118; PULSE 75; RESP 20; TEMP 98; O2SAT 98
== END 2022-09-09 16:10 | disposition home or self-care (01) ==
LOC: SED 13:43
DX: R60.0 Localized edema (principal); Z87.19 Personal history of other diseases of the digestive system; Z86.2 Personal history of diseases of the blood and blood-forming organs and certain disorders involving the immune mechanism; J44.9 Chronic obstructive pulmonary disease, unspecified; Z79.899 Other long term (current) drug therapy
CPT/HCPCS: 99283; 80053; 85025; 36415; 81003; G0482

== ENCOUNTER 2022-12-19 12:49 | Emergency (ER) | payer MEDICAID ==
[~2022-12-19] VITALS: Ht 157.5 cm; Wt 68.0 kg
[~2022-12-19 12:49] MED LIST changes: +SPIR25TA6 PO
[2022-12-19 13:19] VITALS: BP_SYST 131; PULSE 110; RESP 18; TEMP 98.2; O2SAT 99
[2022-12-19 14:41] LABS: BASOPHILS % (AUTO) 0.8 % (0.0-2.0); EOSINOPHILS % (AUTO) 1.7 % (0.0-4.0); HEMOGLOBIN 7.1 g/dL (12.0-16.0); LYMPHOCYTES # (AUTO) 0.6 K/uL (1.0-5.5); LYMPHOCYTES % (AUTO) 21.1 % (20.5-51.5); MEAN CORPUSCULAR HEMOGLOBIN 33 pg (27-31); MEAN CORPUSCULAR HGB CONC 32 % (32-36); MEAN CORPUSCULAR VOLUME 101 fL (79.0-98.0); MONOCYTES # (AUTO) 0.3 K/uL (0.0-1.0); MONOCYTES % (AUTO) 9.8 % (1.7-9.3); NEUTROPHILS # (AUTO) 1.8 K/uL (1.8-7.7); RED BLOOD CELL COUNT(AUTO) 2.18 MIL/uL (4.2-6.2); WHITE BLOOD COUNT (AUTO) 2.8 K/uL (4.8-10.8)
[2022-12-19 14:46] LABS: PLATELET COUNT (AUTO) 35 K/uL (130-430)
[2022-12-19 14:50] LABS: INR 1.6 (0.8-1.2); PROTHROMBIN TIME 16.3 SECS (9.5-12.5)
[2022-12-19 14:51] LABS: ANION GAP 9 (5-15); CALCIUM 8.5 mg/dL (8.4-11.0); CARBON DIOXIDE 23 mmol/L (23-29); CHLORIDE 103 mmol/L (98-107); CREATININE 0.91 mg/dL (0.55-1.30); GFR AFRICAN AMERICAN 81 mL/min (>90); GFR NON AFRICAN-AMERICAN 67 mL/min (>90); GLUCOSE 113 mg/dL (74-106); POTASSIUM 3.3 mmol/L (3.5-5.1); SODIUM SERUM 135 mmol/L (136-145); UREA NITROGEN, BLOOD 6 mg/dL (8-21)
[2022-12-19 14:58] LABS: ALANINE AMINOTRANSFERASE 19 U/L (12-78); ALBUMIN 2.2 g/dL (3.4-4.8); ASPARTATE AMINOTRANSFERASE 77 U/L (10-37); TOTAL BILIRUBIN 6.5 mg/dL (0.0-1.0); TOTAL PROTEIN, SERUM 6.5 g/dL (6.4-8.3)
[2022-12-19 15:05] LABS: NEUTROPHILS % (AUTO) 66.6 % (40.0-70.0)
[2022-12-19 15:06] LABS: ANISOCYTOSIS 2+; TARGET CELLS FEW
[2022-12-19] MEDS ORDERED: CEPH-548 PO (15:19)
[2022-12-19] MEDS ORDERED: ERYEYE EACH EYE (15:19)
[2022-12-19 15:52] VITALS: BP_SYST 124; PULSE 100; RESP 18; TEMP 98.2; O2SAT 99
== END 2022-12-19 15:51 | disposition home or self-care (01) ==
LOC: SED 12:49
DX: R22.42 Localized swelling, mass and lump, left lower limb (principal); H10.33 Unspecified acute conjunctivitis, bilateral; J44.9 Chronic obstructive pulmonary disease, unspecified; Z79.899 Other long term (current) drug therapy
CPT/HCPCS: 36415; 71045; 80053; 83880; 84484; 85025; 85610-TC; 85730-TC; 93005; 93971; 99285

== ENCOUNTER 2023-01-30 21:00 | Inpatient (IN) | payer MEDICAID ==
[~2023-01-30] VITALS: Ht 157.5 cm; Wt 75.7 kg
[~2023-01-30 21:00] MED LIST changes: -ARIP5TAB42 PO; +ERGO1250 PO; -FERR236T3 PO; +FURO-149 PO; -HYDR-3919 PO; +LACT10SO6 PO; -NEOM28.37 TP; -PANT20TA2 PO; +PENT400T17 PO; -PROP10TA10 PO; +RIFA550T5 PO; -SPIR25TA6 PO; +SPIR50TA PO; -VIS50 PO
[2023-01-30 21:03] VITALS: BP_SYST 119; PULSE 98; RESP 20; TEMP 98.5; O2SAT 98
[2023-01-30] MEDS ORDERED: NACL 0.9% 1,000 ML IV ONE (21:30)
[2023-01-30] MEDS ORDERED: PANTOPRAZOLE SODIUM 40 MG/VIAL (PROTONIX) IVP ONE (21:30)
[2023-01-30] MEDS ORDERED: ONDANSETRON HCL 4 MG/2 ML VIAL IVP ONE (21:30)
[2023-01-30 22:02] LABS: BASOPHILS % (AUTO) 0.2 % (0.0-2.0); EOSINOPHILS % (AUTO) 0.6 % (0.0-4.0); HEMATOCRIT 30.9 % (36-48); LYMPHOCYTES # (AUTO) 0.3 K/uL (1.0-5.5); LYMPHOCYTES % (AUTO) 10.1 % (20.5-51.5); MEAN CORPUSCULAR HEMOGLOBIN 33 pg (27-31); MEAN CORPUSCULAR HGB CONC 32 % (32-36); MEAN CORPUSCULAR VOLUME 101 fL (79.0-98.0); MONOCYTES # (AUTO) 0.6 K/uL (0.0-1.0); MONOCYTES % (AUTO) 20.3 % (1.7-9.3); NEUTROPHILS % (AUTO) 68.8 % (40.0-70.0); RED BLOOD CELL COUNT(AUTO) 3.06 MIL/uL (4.2-6.2); RED CELL DISTRIBUTION WIDTH 23.5 % (9.0-15.0)
[2023-01-30 22:08] LABS: PLATELET COUNT (AUTO) 45 K/uL (130-430)
[2023-01-30 22:09] LABS: ANISOCYTOSIS 2+
[2023-01-30 22:14] LABS: ALBUMIN 2.1 g/dL (3.4-4.8); BILIRUBIN,DIRECT 15.3 mg/dL (0.0-0.3); CALCIUM 8.7 mg/dL (8.4-11.0); CREATININE 0.98 mg/dL (0.55-1.30)
[2023-01-30 22:16] LABS: POTASSIUM 2.9 mmol/L (3.5-5.1); TOTAL BILIRUBIN 20.9 mg/dL (0.0-1.0)
[2023-01-30 22:24] LABS: INR 2.5 (0.8-1.2); PROTHROMBIN TIME 24.5 SECS (9.5-12.5)
[2023-01-30] MEDS ORDERED: KCL 40 mEq in 100 mL (PREMIX) 100 ML IV ONE (22:45)
[2023-01-30] MEDS ORDERED: KCL 20 mEq in 100 mL (PREMIX) 200 ML IV ONE (23:15)
[2023-01-30] MEDS ORDERED: HYDROcodone/ACETAMIN 10-325 MG TAB PO PRN (23:30)
[2023-01-30] MEDS ORDERED: HYDROcodone/ACETAMIN 5-325 MG TAB (NORCO/ VICODIN) PO PRN (23:30)
[2023-01-30] MEDS ORDERED: MORPHINE 2 MG/ML INJ. SYRINGE IVP PRN (23:30)
[2023-01-30] MEDS ORDERED: PHYTONADIONE 10 MG/ML AMP SUBCUT ONE (23:30)
[2023-01-30] MEDS ORDERED: ACETAMINOPHEN 325 MG TABLET PO PRN (23:30)
[2023-01-31] MEDS ORDERED: PHYTONADIONE 10 MG/ML AMP ONE (01:58)
[2023-01-31 02:36] VITALS: BP_SYST 94; PULSE 92; RESP 16; TEMP 98.6; O2SAT 94
[2023-01-31 06:21] LABS: BASOPHILS % (AUTO) 0.1 % (0.0-2.0); EOSINOPHILS % (AUTO) 0.3 % (0.0-4.0); HEMATOCRIT 25.1 % (36-48); HEMOGLOBIN 8.2 g/dL (12.0-16.0); LYMPHOCYTES # (AUTO) 0.8 K/uL (1.0-5.5); LYMPHOCYTES % (AUTO) 17.6 % (20.5-51.5); MEAN CORPUSCULAR HEMOGLOBIN 33 pg (27-31); MEAN CORPUSCULAR HGB CONC 33 % (32-36); MEAN CORPUSCULAR VOLUME 101 fL (79.0-98.0); MONOCYTES # (AUTO) 0.8 K/uL (0.0-1.0); MONOCYTES % (AUTO) 18.2 % (1.7-9.3); NEUTROPHILS # (AUTO) 2.9 K/uL (1.8-7.7); NEUTROPHILS % (AUTO) 63.8 % (40.0-70.0); RED BLOOD CELL COUNT(AUTO) 2.49 MIL/uL (4.2-6.2); RED CELL DISTRIBUTION WIDTH 23.4 % (9.0-15.0); WHITE BLOOD COUNT (AUTO) 4.5 K/uL (4.8-10.8)
[2023-01-31 07:20] LABS: ALBUMIN 1.9 g/dL (3.4-4.8); CALCIUM 8.1 mg/dL (8.4-11.0); CREATININE 0.86 mg/dL (0.55-1.30); PHOSPHORUS 3.8 mg/dL (2.7-4.5); POTASSIUM 3.4 mmol/L (3.5-5.1); TOTAL PROTEIN, SERUM 5.1 g/dL (6.4-8.3)
[2023-01-31 07:53] LABS: TOTAL BILIRUBIN 18.2 mg/dL (0.0-1.0)
[2023-01-31 08:38] LABS: PLATELET COUNT (AUTO) 49 K/uL (130-430)
[2023-01-31 08:59] VITALS: BP_SYST 109; PULSE 94; RESP 18; TEMP 96.7; O2SAT 95
[2023-01-31] MEDS: PANTOPRAZOLE SODIUM 40 MG/VIAL (PROTONIX) IVP SCH ×3 (09:00→21:03)
[2023-01-31] MEDS: LACTULOSE 20 GM/30 ML UDC PO SCH ×3 (09:04→21:00)
[2023-01-31] MEDS: RIFAXIMIN 550 MG TABLET PO SCH ×2 (09:04→21:11)
[2023-01-31] MEDS: PENTOXIFYLLINE 400 MG TABLET.SA (TRENtal) PO SCH ×3 (09:04→21:11)
[2023-01-31] MEDS ORDERED: FUROSEMIDE 40 MG TABLET PO ONE (10:15)
[2023-01-31] MEDS ORDERED: SPIRONOLACTONE 50 MG TABLET (ALDACTONE) PO ONE (10:30)
[2023-01-31] MEDS: ONDANSETRON HCL 4 MG/2 ML VIAL IVP PRN ×2 (11:01→18:38)
[2023-01-31 11:59] VITALS: BP_SYST 115; PULSE 89; RESP 24; TEMP 98.4; O2SAT 99
[2023-01-31] MEDS ORDERED: HYDROcodone/ACETAMIN 5-325 MG TAB (NORCO/ VICODIN) PO PRN (15:30)
[2023-01-31] MEDS ORDERED: POTASSIUM CHLORIDE 40 MEQ, LIDOCAINE JECT 2% PF 100 MG 50 MG in NS 250 ML IV ONE (16:30)
[2023-01-31 16:34] LABS: INR 2.4 (0.8-1.2); PROTHROMBIN TIME 23.5 SECS (9.5-12.5)
[2023-01-31 18:11] VITALS: BP_SYST 107; PULSE 61; RESP 16; TEMP 98; O2SAT 95
[2023-01-31 19:00] VITALS: O2SAT 97
[2023-01-31 20:00] VITALS: BP_SYST 104; PULSE 91; RESP 16; TEMP 99.2; O2SAT 97
[2023-02-01 00:04] VITALS: BP_SYST 109; PULSE 94; RESP 15; TEMP 99.4; O2SAT 92
[2023-02-01 08:02] LABS: BASOPHILS % (AUTO) 0.3 % (0.0-2.0); EOSINOPHILS # (AUTO) 0.1 K/uL (0.0-0.4); EOSINOPHILS % (AUTO) 0.6 % (0.0-4.0); HEMOGLOBIN 7.8 g/dL (12.0-16.0); LYMPHOCYTES # (AUTO) 1.9 K/uL (1.0-5.5); LYMPHOCYTES % (AUTO) 23.8 % (20.5-51.5); MEAN CORPUSCULAR HEMOGLOBIN 33 pg (27-31); MEAN CORPUSCULAR HGB CONC 32 % (32-36); MEAN CORPUSCULAR VOLUME 102 fL (79.0-98.0); MONOCYTES # (AUTO) 0.9 K/uL (0.0-1.0); MONOCYTES % (AUTO) 10.9 % (1.7-9.3); NEUTROPHILS # (AUTO) 5.2 K/uL (1.8-7.7); NEUTROPHILS % (AUTO) 64.4 % (40.0-70.0); PLATELET COUNT (AUTO) 53 K/uL (130-430); RED BLOOD CELL COUNT(AUTO) 2.36 MIL/uL (4.2-6.2); RED CELL DISTRIBUTION WIDTH 23.4 % (9.0-15.0)
[2023-02-01 08:20] VITALS: BP_SYST 112; PULSE 74; RESP 16; TEMP 99.6; O2SAT 100
[2023-02-01 08:23] LABS: ALBUMIN 1.9 g/dL (3.4-4.8); CALCIUM 8.3 mg/dL (8.4-11.0); CREATININE 1.08 mg/dL (0.55-1.30); POTASSIUM 3.4 mmol/L (3.5-5.1); TOTAL PROTEIN, SERUM 4.9 g/dL (6.4-8.3)
[2023-02-01 08:41] LABS: TOTAL BILIRUBIN 17.4 mg/dL (0.0-1.0)
[2023-02-01] MEDS: PENTOXIFYLLINE 400 MG TABLET.SA (TRENtal) PO SCH ×3 (09:00→21:51)
[2023-02-01] MEDS: LACTULOSE 20 GM/30 ML UDC PO SCH ×3 (09:00→21:51)
[2023-02-01] MEDS: RIFAXIMIN 550 MG TABLET PO SCH ×2 (09:00→21:51)
[2023-02-01] MEDS: SPIRONOLACTONE 50 MG TABLET (ALDACTONE) PO SCH (09:00)
[2023-02-01] MEDS: FUROSEMIDE 40 MG TABLET PO SCH (09:00)
[2023-02-01] MEDS ORDERED: PHYTONADIONE Non-Formulary 5 MG TABLET PO ONE (10:00)
[2023-02-01] MEDS ORDERED: PHYTONADIONE (Vitamin K) Oral Solution PO ONE (11:00)
[2023-02-01 11:37] VITALS: BP_SYST 118; PULSE 83; RESP 16; TEMP 98.6; O2SAT 93
[2023-02-01 15:04] VITALS: BP_SYST 98; PULSE 71; RESP 16; TEMP 97.5; O2SAT 93
[2023-02-01] MEDS: PANTOPRAZOLE SODIUM 40 MG/VIAL (PROTONIX) IVP SCH ×2 (15:48→21:51)
[2023-02-01 19:03] LABS: HEMATOCRIT 24.2 % (36-48)
[2023-02-01 20:00] VITALS: BP_SYST 107; PULSE 85; RESP 18; TEMP 97.5; O2SAT 98
[2023-02-02] VITALS (11 sets, daily range): BP systolic 87–114; PULSE 85–88; RESP 14–18; TEMP 97.8–98.9; O2SAT 91–99
[2023-02-02] MEDS: LACTULOSE 20 GM/30 ML UDC PO SCH ×3 (09:00→23:37)
[2023-02-02] MEDS: FUROSEMIDE 40 MG TABLET PO SCH (09:00)
[2023-02-02] MEDS: SPIRONOLACTONE 50 MG TABLET (ALDACTONE) PO SCH (09:00)
[2023-02-02] MEDS: PANTOPRAZOLE SODIUM 40 MG/VIAL (PROTONIX) IVP SCH ×2 (09:05→23:36)
[2023-02-02] MEDS: PENTOXIFYLLINE 400 MG TABLET.SA (TRENtal) PO SCH ×3 (09:06→23:37)
[2023-02-02] MEDS: RIFAXIMIN 550 MG TABLET PO SCH ×2 (09:06→23:39)
[2023-02-02] MEDS ORDERED: NACL 0.9% 1,000 ML IV ONE (15:00)
[2023-02-02] MEDS: ONDANSETRON HCL 4 MG/2 ML VIAL IVP PRN (18:32)
[2023-02-03] VITALS (15 sets, daily range): BP systolic 92–114; PULSE 72–98; RESP 16–18; TEMP 97–98.7; O2SAT 94–98
[2023-02-03 07:39] LABS: BASOPHILS % (AUTO) 0.5 % (0.0-2.0); EOSINOPHILS # (AUTO) 0.1 K/uL (0.0-0.4); EOSINOPHILS % (AUTO) 0.9 % (0.0-4.0); HEMATOCRIT 23.4 % (36-48); HEMOGLOBIN 7.7 g/dL (12.0-16.0); LYMPHOCYTES # (AUTO) 0.9 K/uL (1.0-5.5); LYMPHOCYTES % (AUTO) 9.8 % (20.5-51.5); MEAN CORPUSCULAR HEMOGLOBIN 33 pg (27-31); MEAN CORPUSCULAR HGB CONC 33 % (32-36); MEAN CORPUSCULAR VOLUME 102 fL (79.0-98.0); MONOCYTES # (AUTO) 0.9 K/uL (0.0-1.0); MONOCYTES % (AUTO) 9.8 % (1.7-9.3); RED CELL DISTRIBUTION WIDTH 23.9 % (9.0-15.0); WHITE BLOOD COUNT (AUTO) 8.8 K/uL (4.8-10.8)
[2023-02-03 08:03] LABS: ALBUMIN 1.9 g/dL (3.4-4.8); CALCIUM 8.7 mg/dL (8.4-11.0); CREATININE 0.85 mg/dL (0.55-1.30); POTASSIUM 3.1 mmol/L (3.5-5.1); TOTAL PROTEIN, SERUM 5.5 g/dL (6.4-8.3)
[2023-02-03 08:07] LABS: TOTAL BILIRUBIN 18.6 mg/dL (0.0-1.0)
[2023-02-03] MEDS ORDERED: PRO40 PO (08:46)
[2023-02-03] MEDS: SPIRONOLACTONE 50 MG TABLET (ALDACTONE) PO SCH (09:00)
[2023-02-03] MEDS: LACTULOSE 20 GM/30 ML UDC PO SCH ×2 (09:00→21:00)
[2023-02-03 09:11] LABS: PLATELET COUNT (AUTO) 41 K/uL (130-430)
[2023-02-03] MEDS ORDERED: POTASSIUM CHLORIDE 20 MEQ TABLET.ER PO ONE (10:00)
[2023-02-03 10:54] LABS: INR 2.2 (0.8-1.2)
[2023-02-03] MEDS: PANTOPRAZOLE SODIUM 40 MG/VIAL (PROTONIX) IVP SCH ×2 (11:10→22:25)
[2023-02-03] MEDS ORDERED: PHYTONADIONE 10 MG in NS 50 ML IV ONE (16:00)
[2023-02-03] MEDS: PENTOXIFYLLINE 400 MG TABLET.SA (TRENtal) PO SCH (21:37)
[2023-02-03] MEDS: RIFAXIMIN 550 MG TABLET PO SCH (21:37)
[2023-02-04] VITALS (7 sets, daily range): BP systolic 91–120; PULSE 83–100; RESP 16–20; TEMP 98–98.7; O2SAT 94–98
[2023-02-04 07:29] LABS: ALBUMIN 1.8 g/dL (3.4-4.8); CALCIUM 8.8 mg/dL (8.4-11.0); CREATININE 0.88 mg/dL (0.55-1.30); POTASSIUM 3.5 mmol/L (3.5-5.1)
[2023-02-04 07:49] LABS: TOTAL BILIRUBIN 17.2 mg/dL (0.0-1.0)
[2023-02-04] MEDS: LACTULOSE 20 GM/30 ML UDC PO SCH ×3 (08:21→21:00)
[2023-02-04] MEDS: PANTOPRAZOLE SODIUM 40 MG/VIAL (PROTONIX) IVP SCH ×2 (08:22→21:52)
[2023-02-04] MEDS: RIFAXIMIN 550 MG TABLET PO SCH ×2 (08:22→21:19)
[2023-02-04] MEDS: PENTOXIFYLLINE 400 MG TABLET.SA (TRENtal) PO SCH ×3 (08:22→21:19)
[2023-02-04] MEDS: SPIRONOLACTONE 50 MG TABLET (ALDACTONE) PO SCH (08:25)
[2023-02-04] MEDS: FUROSEMIDE 40 MG TABLET PO SCH (08:25)
[2023-02-04 08:57] LABS: INR 2.1 (0.8-1.2); PROTHROMBIN TIME 21.3 SECS (9.5-12.5)
[2023-02-04 09:51] LABS: BASOPHILS % (AUTO) 0.3 % (0.0-2.0); EOSINOPHILS # (AUTO) 0.1 K/uL (0.0-0.4); EOSINOPHILS % (AUTO) 0.7 % (0.0-4.0); HEMATOCRIT 23.1 % (36-48); HEMOGLOBIN 7.4 g/dL (12.0-16.0); LYMPHOCYTES % (AUTO) 10.1 % (20.5-51.5); MEAN CORPUSCULAR HEMOGLOBIN 34 pg (27-31); MEAN CORPUSCULAR HGB CONC 32 % (32-36); MEAN CORPUSCULAR VOLUME 104 fL (79.0-98.0); MONOCYTES # (AUTO) 0.7 K/uL (0.0-1.0); MONOCYTES % (AUTO) 7.4 % (1.7-9.3); NEUTROPHILS # (AUTO) 7.9 K/uL (1.8-7.7); NEUTROPHILS % (AUTO) 81.5 % (40.0-70.0); RED BLOOD CELL COUNT(AUTO) 2.22 MIL/uL (4.2-6.2); RED CELL DISTRIBUTION WIDTH 23.7 % (9.0-15.0)
[2023-02-04 09:58] LABS: WHITE BLOOD COUNT (AUTO) 9.8 K/uL (4.8-10.8)
[2023-02-04 12:58] LABS: PLATELET COUNT (AUTO) 57 K/uL (130-430)
[2023-02-05] VITALS (7 sets, daily range): BP systolic 97–115; PULSE 80–91; RESP 16–18; TEMP 98.1–99.4; O2SAT 94–98
[2023-02-05 06:52] LABS: CALCIUM 8.6 mg/dL (8.4-11.0); CREATININE 1.02 mg/dL (0.55-1.30); POTASSIUM 3.1 mmol/L (3.5-5.1)
[2023-02-05 07:23] LABS: BASOPHILS % (AUTO) 0.3 % (0.0-2.0); EOSINOPHILS % (AUTO) 0.5 % (0.0-4.0); HEMOGLOBIN 7.1 g/dL (12.0-16.0); LYMPHOCYTES # (AUTO) 1.2 K/uL (1.0-5.5); LYMPHOCYTES % (AUTO) 11.9 % (20.5-51.5); MEAN CORPUSCULAR HEMOGLOBIN 34 pg (27-31); MEAN CORPUSCULAR HGB CONC 33 % (32-36); MEAN CORPUSCULAR VOLUME 105 fL (79.0-98.0); MONOCYTES # (AUTO) 0.8 K/uL (0.0-1.0); MONOCYTES % (AUTO) 7.8 % (1.7-9.3); NEUTROPHILS # (AUTO) 7.9 K/uL (1.8-7.7); NEUTROPHILS % (AUTO) 79.5 % (40.0-70.0); PLATELET COUNT (AUTO) 72 K/uL (130-430); RED BLOOD CELL COUNT(AUTO) 2.07 MIL/uL (4.2-6.2); RED CELL DISTRIBUTION WIDTH 24.7 % (9.0-15.0); WHITE BLOOD COUNT (AUTO) 9.9 K/uL (4.8-10.8)
[2023-02-05 07:40] LABS: HEMATOCRIT 21.7 % (36-48)
[2023-02-05] MEDS: LACTULOSE 20 GM/30 ML UDC PO SCH ×3 (09:00→21:00)
[2023-02-05] MEDS: PENTOXIFYLLINE 400 MG TABLET.SA (TRENtal) PO SCH ×3 (09:27→21:07)
[2023-02-05] MEDS: PANTOPRAZOLE SODIUM 40 MG/VIAL (PROTONIX) IVP SCH ×2 (09:27→21:33)
[2023-02-05] MEDS: RIFAXIMIN 550 MG TABLET PO SCH ×2 (09:28→21:07)
[2023-02-05] MEDS: FUROSEMIDE 40 MG TABLET PO SCH (09:28)
[2023-02-05] MEDS: SPIRONOLACTONE 50 MG TABLET (ALDACTONE) PO SCH (09:28)
[2023-02-05] MEDS ORDERED: MENTHOL/ZINC OXIDE 113 GM OINT. TP PRN (15:00)
[2023-02-06 00:41] VITALS: BP_SYST 111; PULSE 71; RESP 16; TEMP 98.9; O2SAT 93
[2023-02-06 06:11] LABS: BASOPHILS % (AUTO) 0.5 % (0.0-2.0); EOSINOPHILS # (AUTO) 0.1 K/uL (0.0-0.4); EOSINOPHILS % (AUTO) 1.1 % (0.0-4.0); HEMATOCRIT 22.3 % (36-48); HEMOGLOBIN 7.3 g/dL (12.0-16.0); LYMPHOCYTES % (AUTO) 12.6 % (20.5-51.5); MEAN CORPUSCULAR HEMOGLOBIN 35 pg (27-31); MEAN CORPUSCULAR HGB CONC 33 % (32-36); MEAN CORPUSCULAR VOLUME 106 fL (79.0-98.0); MONOCYTES # (AUTO) 0.6 K/uL (0.0-1.0); MONOCYTES % (AUTO) 7.6 % (1.7-9.3); NEUTROPHILS # (AUTO) 6.4 K/uL (1.8-7.7); NEUTROPHILS % (AUTO) 78.2 % (40.0-70.0); PLATELET COUNT (AUTO) 55 K/uL (130-430); RED BLOOD CELL COUNT(AUTO) 2.11 MIL/uL (4.2-6.2); RED CELL DISTRIBUTION WIDTH 26.3 % (9.0-15.0); WHITE BLOOD COUNT (AUTO) 8.2 K/uL (4.8-10.8)
[2023-02-06 06:41] LABS: ALBUMIN 1.7 g/dL (3.4-4.8); CALCIUM 8.6 mg/dL (8.4-11.0); CREATININE 1.08 mg/dL (0.55-1.30); TOTAL BILIRUBIN 13.8 mg/dL (0.0-1.0)
[2023-02-06 06:44] LABS: POTASSIUM 2.9 mmol/L (3.5-5.1)
[2023-02-06] MEDS ORDERED: KCL 40 mEq in D5W 1000 mL 1,000 ML IV ONE (07:00)
[2023-02-06 08:00] VITALS: BP_SYST 117; PULSE 77; RESP 16; TEMP 98; O2SAT 96; O2SAT 97
[2023-02-06] MEDS: PANTOPRAZOLE SODIUM 40 MG/VIAL (PROTONIX) IVP SCH ×2 (08:31→21:00)
[2023-02-06] MEDS: PENTOXIFYLLINE 400 MG TABLET.SA (TRENtal) PO SCH ×3 (09:39→21:00)
[2023-02-06] MEDS: RIFAXIMIN 550 MG TABLET PO SCH ×2 (09:39→21:00)
[2023-02-06] MEDS: SPIRONOLACTONE 50 MG TABLET (ALDACTONE) PO SCH (09:40)
[2023-02-06] MEDS: LACTULOSE 20 GM/30 ML UDC PO SCH ×3 (09:40→21:00)
[2023-02-06 10:00] LABS: PROTHROMBIN TIME 20.3 SECS (9.5-12.5)
[2023-02-06 12:00] VITALS: BP_SYST 117; PULSE 77; RESP 20; TEMP 98; O2SAT 96
[2023-02-06 16:00] VITALS: BP_SYST 102; PULSE 79; RESP 18; TEMP 98.7; O2SAT 94
[2023-02-06 19:00] VITALS: O2SAT 93
[2023-02-06 20:00] VITALS: BP_SYST 89; PULSE 85; RESP 20; TEMP 97.8; O2SAT 93
[2023-02-07] VITALS: BP_SYST 92; PULSE 87; RESP 18; TEMP 97.5; O2SAT 94
[2023-02-07 04:00] VITALS: BP_SYST 90; PULSE 89; RESP 20; TEMP 97.2; O2SAT 94
[2023-02-07 07:27] LABS: CALCIUM 8.2 mg/dL (8.4-11.0); CREATININE 1.03 mg/dL (0.55-1.30); POTASSIUM 3.1 mmol/L (3.5-5.1)
[2023-02-07 08:00] VITALS: O2SAT 93
[2023-02-07 08:36] LABS: BASOPHILS % (AUTO) 0.6 % (0.0-2.0); EOSINOPHILS # (AUTO) 0.1 K/uL (0.0-0.4); EOSINOPHILS % (AUTO) 1.1 % (0.0-4.0); HEMOGLOBIN 7.2 g/dL (12.0-16.0); LYMPHOCYTES # (AUTO) 0.9 K/uL (1.0-5.5); LYMPHOCYTES % (AUTO) 13.6 % (20.5-51.5); MEAN CORPUSCULAR HEMOGLOBIN 35 pg (27-31); MEAN CORPUSCULAR HGB CONC 33 % (32-36); MEAN CORPUSCULAR VOLUME 107 fL (79.0-98.0); MONOCYTES # (AUTO) 0.4 K/uL (0.0-1.0); MONOCYTES % (AUTO) 6.9 % (1.7-9.3); NEUTROPHILS % (AUTO) 77.8 % (40.0-70.0); RED BLOOD CELL COUNT(AUTO) 2.04 MIL/uL (4.2-6.2); RED CELL DISTRIBUTION WIDTH 28.9 % (9.0-15.0); WHITE BLOOD COUNT (AUTO) 6.4 K/uL (4.8-10.8)
[2023-02-07] MEDS ORDERED: FUROSEMIDE 20 MG TABLET PO SCH (09:00)
[2023-02-07 09:17] LABS: HEMATOCRIT 21.9 % (36-48)
[2023-02-07] MEDS: LACTULOSE 20 GM/30 ML UDC PO SCH (09:27)
[2023-02-07] MEDS: PENTOXIFYLLINE 400 MG TABLET.SA (TRENtal) PO SCH (09:27)
[2023-02-07] MEDS: SPIRONOLACTONE 50 MG TABLET (ALDACTONE) PO SCH (09:28)
[2023-02-07] MEDS: RIFAXIMIN 550 MG TABLET PO SCH (09:28)
[2023-02-07] MEDS: PANTOPRAZOLE SODIUM 40 MG/VIAL (PROTONIX) IVP SCH (10:25)
[2023-02-07 11:07] LABS: ANISOCYTOSIS 2+; HYPOCHROMASIA 2+; ROULEAU 2+
[2023-02-07 11:08] LABS: PLATELET COUNT (AUTO) 60 K/uL (130-430)
[2023-02-07 12:57] VITALS: BP_SYST 100; PULSE 76; RESP 18; TEMP 97.3; O2SAT 93
== END 2023-02-07 13:25 | disposition hospice, home (50) | DRG 253 ==
LOC: SED 21:00 → STU 23:24 → SMU 02-01 12:18
PROVIDERS: ADMIT Family Medicine; ATTEND Family Medicine
PROC: 30233K1 Transfusion of Nonautologous Frozen Plasma into Peripheral Vein, Percutaneous Approach (ICD-10-PCS; principal; 2023-01-30)
PROC: 30233R1 Transfusion of Nonautologous Platelets into Peripheral Vein, Percutaneous Approach (ICD-10-PCS; 2023-02-03)
DX: K92.2 Gastrointestinal hemorrhage, unspecified (principal); R65.11 Systemic inflammatory response syndrome (SIRS) of non-infectious origin with acute organ dysfunction; E43 Unspecified severe protein-calorie malnutrition; D68.59 Other primary thrombophilia; D69.6 Thrombocytopenia, unspecified; K76.6 Portal hypertension; E83.51 Hypocalcemia; K74.60 Unspecified cirrhosis of liver; K70.11 Alcoholic hepatitis with ascites; E87.1 Hypo-osmolality and hyponatremia; E87.6 Hypokalemia; Z68.30 Body mass index [BMI] 30.0-30.9, adult; D64.9 Anemia, unspecified; K31.89 Other diseases of stomach and duodenum; R13.12 Dysphagia, oropharyngeal phase; R73.9 Hyperglycemia, unspecified; J44.9 Chronic obstructive pulmonary disease, unspecified; Z90.49 Acquired absence of other specified parts of digestive tract
CPT/HCPCS: 36415; 80048; 80053; 80076; 83690; 83735; 84100; 85018; 85025; 85384; 85610-TC; 85730-TC; 86886; 86900; 86901; 87081; 92610-GN; 96361; 96374; 96375; 97110-GP; 97116-GP; 97163-GP; 97530-GP; 99291; C9113; G0378; J2405; J3430; J3480; J7050; P9034; P9059